=== PATIENT | female | born 1945 | race Caucasian/White ===

== ENCOUNTER 2020-01-29 12:21 | Outpatient (CLI) | payer MEDICARE, SELFPAY ==
--- NOTE | ~2020-01-29 | MM_ITS ---
EXAMINATION: MM screening [facility] BI w brett HISTORY: Screening mammogram TECHNIQUE: Craniocaudal and mediolateral oblique 3-D tomosynthesis images were obtained and synthetic 2-D images were generated. CAD analysis was submitted and interpreted. COMPARISON: 01/27/2019, 08/19/2018, 12/06/2017, BREAST PARENCHYMAL COMPOSITION: The breasts are heterogeneously dense, which may obscure small masses . FINDINGS: There is no evidence of suspicious mass, calcification, or architectural distortion to sugg est malignancy in either breast. There has been no suspicious interval change. IMPRESSION: 1. No mammographic evidence of malignancy. 2. Recommend routine screening mammography in one year. BI-RADS Category 1: Negative Reviewed, dictated and finalized at location A.
== END 2020-01-29 12:22 | disposition home or self-care (01) ==
PROVIDERS: PCP Internal Medicine; Visit Provider Internal Medicine Hematology & Oncology
DX: Z12.31 Encounter for screening mammogram for malignant neoplasm of breast (principal)
CPT/HCPCS: 77063; 77067

== ENCOUNTER 2020-02-19 09:53 | Outpatient (CLI) | payer MEDICARE, SELFPAY ==
--- NOTE | ~2020-02-19 | XR_ITS ---
EXAMINATION: XR knee RT min 4V DATE: 02/19/2020 10:22 INDICATION: Right knee pain. TECHNIQUE: 4 views of right knee were obtained. COMPARISON: None. FINDINGS: Bone alignment is normal. No fracture. There is mild osteoarthritis of medial and patellofe moral compartments. No knee joint effusion. IMPRESSION: 1. Mild right knee osteoarthritis. Reviewed, dictated and finalized at location A. ET ANALYST
[2020-02-19 10:08] LABS: Basophils Absolute Auto 0.03 K/mm3 (0.00-0.10); Basophils Percent Auto 0.5 % (0.0-1.0); Eosinophils Absolute Auto 0.13 K/mm3 (0.02-0.50); Eosinophils Percent Auto 2.1 % (1.0-6.0); Hematocrit 41.5 % (35.0-42.0); Hemoglobin 13.2 g/dL (11.7-13.8); Immature Granulocyte Absolute 0.01 K/mm3 (0.00-0.00); Immature Granulocyte Percent A 0.2 % (0.0-0.0); Lymphocytes Absolute Auto 1.35 K/mm3 (1.10-4.50); Lymphocytes Percent Auto 21.9 % (18.0-42.0); Mean Corpuscular HGB Conc 31.8 g/dL (32.0-36.0); Mean Corpuscular Hemoglobin 29.2 pg (27.0-31.0); Mean Corpuscular Volume 91.8 fL (78.0-102.0); Mean Platelet Volume 10.7 fl (9.2-11.8); Monocytes Absolute Auto 0.41 K/mm3 (0.10-0.90); Monocytes Percent Auto 6.7 % (2.0-11.0); Neutrophils Absolute Auto 4.2 K/mm3 (1.7-7.2); Neutrophils Percent Auto 68.6 % (50.0-70.0); Platelet Count Result 179 K/mm3 (150-420); Red Blood Count 4.52 M/mm3 (4.20-5.40); Red Cell Distribution Width 12.4 % (11.6-14.4); White Blood Count 6.2 K/mm3 (4.8-10.8)
[2020-02-19 10:12] LABS: Add Urine Microscopic? NO; Appearance Urine Clear (Clear); Bilirubin Urine Negative (Negative); Blood Urine Negative (Negative); Color Urine Yellow (Yellow); Glucose Urine UA Negative (Negative); Ketones Urine Negative (Negative); Leukocyte Esterase Ur Negative (Negative); Nitrate Urine Negative (Negative); Protein Urine Negative (Negative); Specific Grav Ur 1.025 (1.010-1.020); Urobilinogen Urine 0.2 mg/dL (0.2-1.0)
[2020-02-19 11:19] LABS: Alanine Aminotransferase 31 U/L (14-59); Albumin Level 4.1 g/dL (3.4-5.0); Alkaline Phosphatase 84 U/L (46-116); Anion Gap 9 mmol/L (8-16); Aspartate Amino Transferase 14 U/L (15-37); Bilirubin,Total 0.7 mg/dL (0.00-1.00); Blood Urea Nitrogen 15 mg/dL (7-18); Calcium 9.1 mg/dL (8.5-10.1); Carbon Dioxide 29 mmol/L (21-32); Chloride 105 mmol/L (98-108); Cholesterol 228 mg/dL (0-200); Estimated Glomerular Filt Rate > 60; Free T3 2.77 pg/mL (2.18-3.98); Glucose 96 mg/dL (70-99); HDL Direct 81 mg/dL (40-60); LDL Cholesterol Calculated 128 mg/dL (<130); Osmolality Calculated 296 mOsm/kg (285-295); Potassium 4.3 mmol/L (3.5-5.1); Sodium 143 mmol/L (136-145); Thyroid Stimulating Hormone 4.78 uIU/mL (0.36-3.74); Total Protein 7.8 g/dL (6.4-8.2); Triglycerides 96 mg/dL (0-150)
[2020-02-25 12:24] LABS: Vitamin D 25 Hydroxy 41 ng/mL (30-100)
== END 2020-02-19 09:54 | disposition home or self-care (01) ==
PROVIDERS: PCP Internal Medicine; Visit Provider Internal Medicine
DX: M25.561 Pain in right knee (principal); E78.2 Mixed hyperlipidemia; E03.4 Atrophy of thyroid (acquired); E53.8 Deficiency of other specified B group vitamins; R53.82 Chronic fatigue, unspecified; M81.0 Age-related osteoporosis without current pathological fracture; C50.412 Malignant neoplasm of upper-outer quadrant of left female breast
CPT/HCPCS: 36415; 73564; 80053; 80061; 81003; 82306; 84439; 84443; 84481; 85025

== ENCOUNTER 2020-08-17 15:36 | Outpatient (CLI) | payer MEDICARE, SELFPAY | END 2020-08-17 15:37 | disposition home or self-care (01) | LOC: CHSLAB 15:41 | PROVIDERS: PCP Internal Medicine; Visit Provider Specialist | DX: C44.722 Squamous cell carcinoma of skin of right lower limb, including hip (principal) | CPT/HCPCS: 88305 ==

== ENCOUNTER 2020-12-01 12:54 | Outpatient (CLI) | payer MEDICARE, SELFPAY ==
--- NOTE | ~2020-12-01 | XR_ITS ---
MODIFIED ESOPHAGRAM HISTORY: Pneumonia TECHNIQUE: Modified barium esophagram was performed by speech pathologist under radiologist fluorosco pic guidance. This was recorded on tape. The exam was reviewed on 12/01/2020 16:00 CDT. The DAP for this procedure was 0.7 Gycm2. Fluoroscopy time is 1.6 minutes. FINDINGS: Lateral projection of the cervical spine demonstrates normal alignment. Oral, pharyngeal and cervical/esophageal stages of swallowing are within normal limits. No evidence for aspiration or penetration.. IMPRESSION: 1: Normal swallowing function without penetration or aspiration. 2: Please refer to speech pathologist report for additional detail. Reviewed, dictated and finalized at location A.
--- NOTE | 2020-12-01 14:52 | STOPEVAL ---
MODIFIED BARIUM SWALLOW STUDY Thank you for referring Meghna Cai to [facility].? This was an evaluation only. Please review, sign, date and return this plan of care NAKITA. Referring Physician Date Admitting Provider: Attending Provider: Arjun Espino MD Referring Provider: JOLEEN Outpatient Evaluation Start: 12/01/20 14:32 Freq: Status: Active Protocol: Document 12/01/20 13:00 MJB (Rec: 12/01/20 14:51 MJB [id number]) Therapy Assessment Status Assessment Status Assessment Status Evaluation Outpatient Past Medical History Past Medical History Source of Past Medical History Patient Neurological History Hx Neurological Disorders No Significant History Cardiovascular History Hx Cardiac Disorders No Significant History Respiratory History Hx Respiratory Disorders No Significant History Gastrointestinal History Hx Gastrointestinal Disorders No Significant History Genitourinary History Hx Genitourinary Disorders No Significant History Musculoskeletal History Hx Musculoskeletal Disorders No Significant History Hematological History Hx Hematological Disorders No Significant History Endocrine History Hx Endocrine Disorders No Significant History HEENT History Hx HEENT Disorders No Significant History Integumentary History Hx Skin Disorders No Significant History Reproductive History Hx Reproductive Disorders No Significant History Psychosocial History Hx Psychiatric Disorders No Significant History Pain History History of Any Previous or Ongoing No Significant History Instance of Pain Anesthesia History Hx Anesthesia Reactions No Significant History Other History Hx Cancer Yes: breast cancer 4 years ago Pain Assessment Timing of Pain Assessment Timing of Pain Assessment Assessment Self Report Self Report Pain Level 0 Pain Score Pain Score 0: Self Report Modified Barium Swallow Evaluation Recent Swallowing History Reports Dysphagia Yes History of Dysphagia Yes Duration of Dysphagia choking episode 1x per week Other Factors Impacting Dysphagia None History of Pneumonia No Reported Difficult Consistencies Unable to Identify Intake Method Prior to Swallow Oral Evaluation Diet Prior to Swallow Evaluation Regular, Level 7 Liquid Consistency Prior to Swallow Thin (0) Evaluation Consistency Solid Consistency 5 mL Other Amount Liam cracker Method of Presentation Spoon Oral Preparatory Symptoms Within Functional Limits Oral Phase Symptoms Piecemeal Deglutition,Slow Oral Transit Pharyngeal Phase Symptoms Delayed Swallow Sever
== END 2020-12-01 12:55 | disposition home or self-care (01) ==
LOC: CHSIMG 12:56
PROVIDERS: PCP Internal Medicine; Visit Provider Internal Medicine
DX: R13.12 Dysphagia, oropharyngeal phase (principal)
CPT/HCPCS: 92611

== ENCOUNTER 2020-12-21 15:31 | Outpatient (CLI) | payer MEDICARE, SELFPAY | END 2020-12-21 15:32 | disposition home or self-care (01) | LOC: CHSLAB 15:34 | PROVIDERS: PCP Internal Medicine; Visit Provider Specialist | DX: C44.722 Squamous cell carcinoma of skin of right lower limb, including hip (principal) | CPT/HCPCS: 88305 ==

== ENCOUNTER 2021-01-05 11:45 | Outpatient (CLI) | payer MEDICARE, SELFPAY ==
[2021-01-05 13:23] LABS: SARS-CoV-2 RNA PCR Negative (Negative)
== END 2021-01-05 11:46 | disposition home or self-care (01) ==
LOC: CHSLAB 11:47
PROVIDERS: PCP Internal Medicine; Visit Provider Internal Medicine
DX: J06.9 Acute upper respiratory infection, unspecified (principal); Z20.822 Contact with and (suspected) exposure to COVID-19
CPT/HCPCS: C9803; U0003; U0005

== ENCOUNTER 2021-02-28 13:05 | Outpatient (CLI) | payer MEDICARE, SELFPAY ==
--- NOTE | ~2021-02-28 | DEXA_ITS ---
Bone Density Report Name: Meghna Cai Age: 75 Sex: Female Ethnicity: White Date of : 1945 Indication: osteopenia; height loss; cancer; Referring Provider: Arjun Espino Study: Bone densitometry was performed. Exam Date: February 28, 2021 Accession number: [id number] Bone Density: Region BMD T-score Z-score Classification AP Spine(L1-L4) 0.777 -2.5 0.1 Osteoporosis Femoral Neck (Left) 0.585 -2.4 -0.2 Osteopenia Total Hip (Left) 0.705 -1.9 0.0 Osteopenia Femoral Neck (Right) 0.582 -2.4 -0.2 Osteopenia Total Hip (Right) 0.774 -1.4 0.6 Osteopenia Femoral Neck Mean 0.584 -2.4 -0.2 Osteopenia Total Hip Mean 0.739 -1.7 0.3 Osteopenia World Health Organization criteria for BMD impression classify patients as: Normal (T-score at or above -1.0), Osteopenia (T-score between -1.0 and -2.5), or Osteoporosis (T-score at or below -2.5). 10-year Fracture Risk: FRAX not reported because: Some T-score for Spine Total or Hip Total or Femoral Neck at or below -2.5 Previous Exams: Region Exam Age BMD T-score BMD Change BMD Change Date g/cm2 vs Baseline vs Previous AP Spine (L1-L4) 02/28/2021 75 0.777 -2.5 -0.090 (-10.4% -0.087 (-10.1% 01/27/2019 73 0.864 -1.7 -0.003 (-0.4%) -0.003 (-0.4%) 11/23/2016 71 0.868 -1.6 Total Hip(Left) 02/28/2021 75 0.705 -1.9 -0.043 (-5.7%) -0.071 (-9.2%) 01/27/2019 73 0.776 -1.4 0.028 (3.8%)* 0.028 (3.8%)* 11/23/2016 71 0.747 -1.6 Total Hip(Right) 02/28/2021 75 0.774 -1.4 0.067 (9.4%)# 0.067 (9.4%)# 01/27/2019 73 0.707 -1.9 *Denotes significance at 95% confidence level, LSC for AP Spine = 0.022 g/cm2, LSC for Total Hip = 0.027 g/cm2 # Denotes dissimilar scan types or analysis methods Clinical Information Provided by Patient: Has used the following medications: Vitamin D, Calcium Has the following medical conditions: Cancer Patient maximum height was 64 Drinks caffeinated beverages Onset of menses at age 12 Number of children 4 Impression: The patient has osteoporosis, based on the Total Spine T-score. No significant bone loss was observed. Discussion: INCREASED RISK OF FRACTURE. BONE DENSITY IS UNDESIRABLY LOW AT ONE OR MORE SKELETAL SITES, CONSISTENT WITH POSTMENOPAUSAL OSTEOPOROSIS. This patient's lowest T-score meets the World Health Organization's (WHO) criteria for osteoporosis at one or more sites (T-score -2.5 or below). In untreated patie
--- NOTE | ~2021-02-28 | MM_ITS ---
EXAMINATION: MM screening [facility] BI w brett HISTORY: Screening mammogram TECHNIQUE: Craniocaudal and mediolateral oblique 3-D tomosynthesis images were obtained and synthetic 2-D images were generated. CAD analysis was submitted and interpreted. COMPARISON: 01/29/2020, 01/27/2019 bilateral screening mammogram examinations BREAST PARENCHYMAL COMPOSITION: The breasts are heterogeneously dense, which may obscure small masses . FINDINGS: There is no evidence of suspicious mass, calcification, or architectural distortion to sugg est malignancy in either breast. There has been no suspicious interval change. IMPRESSION: 1. No mammographic evidence of malignancy. 2. Recommend routine screening mammography in one year. BI-RADS Category 1: Negative Reviewed, dictated and finalized at location A. A SENIOR RECRUITER
[2021-02-28 13:21] LABS: Basophils Absolute Auto 0.05 K/mm3 (0.00-0.10); Basophils Percent Auto 0.8 % (0.0-1.0); Eosinophils Absolute Auto 0.18 K/mm3 (0.02-0.50); Eosinophils Percent Auto 2.7 % (1.0-6.0); Hematocrit 40.4 % (35.0-42.0); Hemoglobin 12.9 g/dL (11.7-13.8); Immature Granulocyte Absolute 0.02 K/mm3 (0.00-0.00); Immature Granulocyte Percent A 0.3 % (0.0-0.0); Lymphocytes Absolute Auto 1.49 K/mm3 (1.10-4.50); Lymphocytes Percent Auto 22.5 % (18.0-42.0); Mean Corpuscular HGB Conc 31.9 g/dL (32.0-36.0); Mean Corpuscular Hemoglobin 29.4 pg (27.0-31.0); Mean Platelet Volume 10.9 fl (9.2-11.8); Monocytes Absolute Auto 0.51 K/mm3 (0.10-0.90); Monocytes Percent Auto 7.7 % (2.0-11.0); Neutrophils Absolute Auto 4.4 K/mm3 (1.7-7.2); Platelet Count Result 168 K/mm3 (150-420); Red Blood Count 4.39 M/mm3 (4.20-5.40); Red Cell Distribution Width 12.5 % (11.6-14.4); White Blood Count 6.6 K/mm3 (4.8-10.8)
[2021-02-28 13:23] LABS: Add Urine Microscopic? YES; Appearance Urine Clear (Clear); Bilirubin Urine Negative (Negative); Blood Urine Negative (Negative); Color Urine Light Yellow (Yellow); Glucose Urine UA Negative (Negative); Ketones Urine Trace (Negative); Leukocyte Esterase Ur Negative LEU/UL (Negative); Nitrate Urine Negative (Negative); Protein Urine Negative (Negative); Urobilinogen Urine 0.2 mg/dL (0.2-1.0)
[2021-02-28 13:30] LABS: RBC Urine None seen /hpf (0-2); Squamous Epithelial Cell Urine Rare /hpf (Few); WBC Urine None seen /hpf (0-3)
[2021-02-28 13:31] LABS: Bacteria Urine Trace /hpf
[2021-02-28 15:53] LABS: Alanine Aminotransferase 25 U/L (14-59); Albumin Level 4.2 g/dL (3.4-5.0); Alkaline Phosphatase 74 U/L (46-116); Anion Gap 12 mmol/L (8-16); Aspartate Amino Transferase 17 U/L (15-37); Blood Urea Nitrogen 17 mg/dL (7-18); Calcium 8.8 mg/dL (8.5-10.1); Carbon Dioxide 29 mmol/L (21-32); Chloride 101 mmol/L (98-108); Estimated Glomerular Filt Rate > 60; Free T3 2.43 pg/mL (2.18-3.98); Free T4 Free Thyroxine 0.92 ng/dL (0.76-1.46); Glucose 89 mg/dL (70-99); Osmolality Calculated 294 mOsm/kg (285-295); Potassium 3.9 mmol/L (3.5-5.1); Sodium 142 mmol/L (136-145); Thyroid Stimulating Hormone 3.46 uIU/mL (0.36-3.74); Total Protein 7.3 g/dL (6.4-8.2)
[2021-02-28 16:02] LABS: Vitamin B12 > 2000 pg/mL (193-986)
[2021-03-05 12:29] LABS: Vitamin D 25 Hydroxy 79 ng/mL (30-100)
== END 2021-02-28 13:06 | disposition home or self-care (01) ==
LOC: CHSIMG 13:08
PROVIDERS: PCP Internal Medicine; Visit Provider Internal Medicine
DX: M81.0 Age-related osteoporosis without current pathological fracture (principal); Z12.31 Encounter for screening mammogram for malignant neoplasm of breast; R53.82 Chronic fatigue, unspecified; E03.4 Atrophy of thyroid (acquired); E53.8 Deficiency of other specified B group vitamins
CPT/HCPCS: 36415; 77063; 77067; 77080; 80053; 81001; 82306; 82607; 84439; 84443; 84481; 85025

== ENCOUNTER 2021-07-05 09:10 | Outpatient (CLI) | payer MEDICARE, SELFPAY | END 2021-07-05 09:11 | disposition home or self-care (01) | LOC: CHSOUTPT 09:18 | PROVIDERS: PCP Internal Medicine; Visit Provider Specialist | DX: C44.729 Squamous cell carcinoma of skin of left lower limb, including hip (principal) | CPT/HCPCS: 88305 ==

== ENCOUNTER 2021-08-17 11:35 | Emergency (ER) | payer MEDICARE, SELFPAY ==
[2021-08-17] VITALS (20 sets, daily range): BP systolic 119–156; BP diastolic 71–95; PULSE 79; RESP 20; TEMP 36.6–36.7; O2SAT 95–100
--- NOTE | ~2021-08-17 | CT_ITS ---
EXAMINATION: CTA chest PE protocol DATE: 08/17/2021 13:36 INDICATION: Chest tightness. Shortness of breath. COVID-19 positive recently. TECHNIQUE: Computed tomography angiography (CTA) of the chest was performed with 100 mL Omnipaque-350 intravenous contrast timed to evaluate the pulmonary arteries. Coronal maximum intensity projection 3D-reconstructions were created by the technologist. Automated exposure control and iterative reconst ruction technique were employed. The dose-length product was 188.58 mGy-cm. COMPARISON: None. FINDINGS: There is mild scarring at the lung apices. There is mild atelectasis bilaterally. No pleura l effusion. Cardiomegaly is noted. No pericardial effusion. There is no pulmonary embolus. There is a 17 mm cyst in the liver. Calcifications in the spleen are consistent with old granulomatous disease. There is moderate thoracic spondylosis. IMPRESSION: 1. No pulmonary embolus. Reviewed, dictated and finalized at location B. IMPRESSION: 1. No pulmonary embolus.
--- NOTE | ~2021-08-17 | XR_ITS ---
EXAMINATION: XR chest 1V portable DATE: 08/17/2021 12:12 INDICATION: COVID positive. Cough and congestion. TECHNIQUE: frontal view of the chest was obtained. COMPARISON: Chest radiograph dated 02/19/2019 FINDINGS: Unchanged mild streaky atelectasis/scarring at the left lower lung zone. No new airspace opacities, p ulmonary edema, pleural effusion or pneumothorax. The cardiomediastinal silhouette is normal. IMPRESSION: 1. Unchanged mild streaky atelectasis/scarring at the left lower lung zone. No acute cardiopulmonary disease. Reviewed, dictated and finalized at location A.
--- NOTE | 2021-08-17 11:42 | ED.GENADULT ---
HPI - General Adult General Chief complaint: Shortness of Breath/Dyspnea Stated complaint: COVID Time Seen by Provider: 08/17/21 11:42 Source: patient History of Present Illness HPI narrative: 76-year-old female with a history of breast cancer, status post hysterectomy, status post appendectomy tested positive for COVID on 08/09/2021. She is COVID vaccinated. She presents to the ER with -- Chest congestion. No shortness of breath. No Chest pain. -- low-grade which has resolved -- she had 2 episodes of since morning Onset (ago): day(s) ( started 10 ago) Associated symptoms: denies other symptoms Treatments prior to arrival: other ( Mucinex) Related Data Home Medications Medication Instructions Recorded Confirmed anastrozole 1 mg PO DAILY 02/19/19 08/17/21 Allergies Allergy/AdvReac Type Severity Reaction Status Date / Time No Known Allergies Allergy Unverified 08/17/21 12:09 Review of Systems Review of Systems: All systems reviewed & are unremarkable except as noted in HPI and below Constitutional: Constitutional: Reports as per HPI and Reports no additional constitutional complaints Comments: low-grade fever Eyes: Eyes: Reports as per HPI and Reports no additional eye complaints ENT: Reports system reviewed and no additional complaints, except as documented and Reports as per HPI Cardiovascular: Cardiovascular: Reports as per HPI and Reports no additional cardiovascular complaints Respiratory: Respiratory: Reports as per HPI and Reports no additional respiratory complaints Comments: chest congestion. No cough or sputum production. No shortness of breath. Gastrointestinal: Gastrointestinal: Reports as per HPI and Reports no additional gastrointestinal complaints Genitourinary: Genitourinary: Reports no additional female genitourinary complaints and Reports as per HPI Musculoskeletal: Musculoskeletal: Reports no additional musculoskeletal complaints and Reports as per HPI Integumentary/Breasts: Skin/Breast: Reports system reviewed and no additional complaints, except as docu and Reports as per HPI Neurologic: Reports system reviewed and no additional complaints, except as documented and Reports as per HPI Psychiatric: Psychiatric: Reports no additional psychiatric complaints and Reports as per HPI Endocrine: Endocrine: Reports no additional endocrine complaints and Reports as per HPI Hematologic/Lymphatic: Hematologic/Lymphatic: Reports no additional hematologic/lymphatic complaints and Reports as per HPI Allergic/Immunologic: Allergic/Immunologic: Reports no additional allergic/immunologic complaints and Reports as per HPI Exam Const: General: no acute distress and alert Orientation/consciousness: patient oriented x3 HENMT: Head: normal to inspection Eyes: Conjunctivae: conjunctivae normal Pupils: Equal, round and reactive pupils present EOM: EOMs intact bilaterally Neck: Neck: normal visual inspection and no lymphadenopathy Chest: Chest palpation & inspection: normal inspection of the chest and abnormal inspection of the chest Resp: Effort & Inspection: normal respiratory effort Auscultation: clear to auscultation bilaterally Cardio: Rate: regular rate Rhythm: regular rhythm GI: GI Palp: Yes Soft to palpation : General: Yes no CVA tenderness Back/Spine/Pelvis: Back: no CVA tenderness Skin: General skin exam: normal color Rashes: no rashes Neuro: General: patient oriented x3, moves all extremities, no meningeal signs, no focal motor deficits and CN's II-XI intact bilaterally Extrem: General: normal to inspection and no pedal edema Psych: Mental Status: mental status grossly normal Affect: normal affect Course Course Emergency Course: patient has remained hemodynamically stable during her entire ER stay. Medical Decision Making MDM Narrative Medical decision making narrative: Chest congestion- rule out COVID pneumonia Differential Diagnosis Differential Diagn
--- NOTE | 2021-08-17 11:57 | ECG_ITS ---
Measurements Intervals [place] Rate: 66 P: 56 HI: 164 QRS: -22 QRSD: 81 T: 27 QT: 402 QTc: 421 Interpretive Statements SINUS RHYTHM DELAYED PRECORDIAL R/S TRANSITION BASELINE ARTIFACT- I, II, III, AVR, AVL, AVF BORDERLINE ECG Electronically Signed On 08-17-2021 13:08:31 CDT by Duglas Penaloza D.O.
[2021-08-17 12:20] LABS: Basophils Absolute Auto 0.02 K/mm3 (0.00-0.10); Basophils Percent Auto 0.5 % (0.0-1.0); Eosinophils Absolute Auto 0.11 K/mm3 (0.02-0.50); Eosinophils Percent Auto 2.5 % (1.0-6.0); Hemoglobin 13.1 g/dL (11.7-13.8); Immature Granulocyte Absolute 0.01 K/mm3 (0.00-0.00); Immature Granulocyte Percent A 0.2 % (0.0-0.0); Lymphocytes Percent Auto 31.6 % (18.0-42.0); Mean Corpuscular HGB Conc 32.8 g/dL (32.0-36.0); Mean Corpuscular Hemoglobin 29.6 pg (27.0-31.0); Mean Corpuscular Volume 90.3 fL (78.0-102.0); Mean Platelet Volume 11.1 fl (9.2-11.8); Monocytes Absolute Auto 0.34 K/mm3 (0.10-0.90); Monocytes Percent Auto 7.7 % (2.0-11.0); Neutrophils Absolute Auto 2.6 K/mm3 (1.7-7.2); Neutrophils Percent Auto 57.5 % (50.0-70.0); Platelet Count Result 163 K/mm3 (150-420); Red Blood Count 4.43 M/mm3 (4.20-5.40); Red Cell Distribution Width 11.9 % (11.6-14.4); White Blood Count 4.4 K/mm3 (4.8-10.8)
[2021-08-17 12:34] LABS: Partial Thromboplastin Time 26.2 SEC (23.90-30.70); Prothrombin Time 10.6 Seconds (9.50-12.10)
[2021-08-17 12:36] LABS: D Dimer 1.56 mg/L (0.19-0.50)
[2021-08-17 12:40] LABS: Lactic Acid Reflex 0.5 mmol/L (0.4-2.0)
[2021-08-17 12:44] LABS: Alanine Aminotransferase 22 U/L (14-59); Albumin Level 3.6 g/dL (3.4-5.0); Alkaline Phosphatase 97 U/L (46-116); Anion Gap 9 mmol/L (8-16); Aspartate Amino Transferase 14 U/L (15-37); Bilirubin,Total 0.5 mg/dL (0.00-1.00); Blood Urea Nitrogen 14 mg/dL (7-18); Calcium 8.8 mg/dL (8.5-10.1); Carbon Dioxide 26 mmol/L (21-32); Chloride 101 mmol/L (98-108); Estimated CRCL calculation 43 ml/min; Estimated Glomerular Filt Rate > 60; Glucose 104 mg/dL (70-99); NT Pro B Type Natriuretic Pept 182 pg/mL (0-450); Osmolality Calculated 282 mOsm/kg (285-295); Potassium 3.9 mmol/L (3.5-5.1); Sodium 136 mmol/L (136-145); Total Protein 7.3 g/dL (6.4-8.2)
[2021-08-17 12:45] LABS: Troponin I 6.1 ng/L (0.00-60.4)
[2021-08-17] MEDS: LACTATED RINGERS 1,000 ML 999 ML IV CONT (13:26)
== END 2021-08-17 14:35 | disposition home or self-care (01) ==
PROVIDERS: Emergency Provider Internal Medicine Critical Care Medicine; PCP Internal Medicine
DX: U07.1 COVID-19 (principal); R09.89 Other specified symptoms and signs involving the circulatory and respiratory systems; Z85.3 Personal history of malignant neoplasm of breast
CPT/HCPCS: 36415; 71045; 71275; 80053; 83605; 83880; 84484; 85025; 85380; 85610; 85730; 93005; 96360; 99284; J7120; Q9967

== ENCOUNTER 2022-03-02 11:33 | Outpatient (CLI) | payer MEDICARE, SELFPAY ==
--- NOTE | ~2022-03-02 | MM_ITS ---
EXAMINATION: MM screening [facility] BI w brett HISTORY: Screening mammogram TECHNIQUE: Craniocaudal and mediolateral oblique 3-D tomosynthesis images were obtained and synthetic 2-D images were generated. CAD analysis was submitted and interpreted. COMPARISON: 02/28/2021, 01/29/2020, 01/19/2019 BREAST PARENCHYMAL COMPOSITION: The breasts are heterogeneously dense, which may obscure small masses . FINDINGS: RIGHT BREAST: There are grouped calcifications in the middle third of the lower-outer breast 7 cm fro m the nipple. LEFT BREAST: No suspicious mass, calcification, or architectural distortion are identified to suggest malignancy. There has been no suspicious interval change. IMPRESSION: 1. Right breast calcifications. 2. Magnification views are recommended. BI-RADS Category 0: Incomplete: Needs additional imaging evaluation. Reviewed, dictated and finalized at location A. HYSICS PROFESSOR
== END 2022-03-02 11:34 | disposition home or self-care (01) ==
LOC: CHSIMG 11:35
PROVIDERS: PCP Internal Medicine; Visit Provider Internal Medicine Hematology & Oncology
DX: Z12.31 Encounter for screening mammogram for malignant neoplasm of breast (principal)
CPT/HCPCS: 77063; 77067

== ENCOUNTER 2022-03-09 08:51 | Outpatient (CLI) | payer MEDICARE, SELFPAY ==
--- NOTE | ~2022-03-09 | MM_ITS ---
EXAMINATION: MM diagnostic lexus RT w brett HISTORY: Right breast calcifications on screening mammogram TECHNIQUE: Magnification views of the right breast were performed. CAD analysis was submitted and int erpreted. COMPARISON: 03/02/2022, 02/28/2021, 01/29/2020 FINDINGS: There are grouped coarse heterogeneous calcifications in the posterior third of the outer b reast at the 8:00 location 7 cm from the nipple which have increased in number since comparison exami nations. No associated mass is identified. IMPRESSION: 1. Indeterminate right breast calcifications. 2. Stereotactic biopsy is recommended. BI-RADS category 4, suspicious findings. Reviewed, dictated and finalized at location A. SPREADER OPERATOR
== END 2022-03-09 08:52 | disposition home or self-care (01) ==
PROVIDERS: PCP Internal Medicine; Visit Provider Internal Medicine
DX: R92.8 Other abnormal and inconclusive findings on diagnostic imaging of breast (principal)
CPT/HCPCS: 77061; 77065; G0279

== ENCOUNTER 2023-01-23 14:37 | Emergency (ER) | payer MEDICARE, SELFPAY ==
--- NOTE | ~2023-01-23 | CT_ITS ---
EXAMINATION: CT brain wo con DATE: 01/23/2023 15:01 INDICATION: Status post fall from ladder. TECHNIQUE: Computed tomography (CT) of the head was performed without intravenous contrast. The dose- length product was 605.33 mGy-cm. COMPARISON: CT dated 02/19/2019 FINDINGS: There is a right posterior parietal scalp hematoma. Round brain parenchymal volume loss, co nsistent menstrual with age. There is intracranial atherosclerosis. No acute infarction, hemorrhage, mass or mass effect. Paranasal sinuses and mastoids are pneumatized. No depressed skull fractures. Th ere are scattered mild periventricular and subcortical white matter changes, most likely related to s mall vessel ischemic disease (microangiopathy). IMPRESSION: 1. No acute intracranial abnormality. Reviewed, dictated and finalized at location L.
[2023-01-23 14:37] VITALS: BP 156/80; PULSE 94; RESP 20; TEMP 37.4; O2SAT 97
--- NOTE | 2023-01-23 14:45 | ED.FALL ---
HPI - Fall General Chief Complaint: Head Injury Stated Complaint: fall; head injury Time Seen by Provider: 01/23/23 14:42 Source: patient and RN notes reviewed Mode of arrival: ambulatory Limitations: no limitations History of Present Illness HPI Narrative: Patient states that she was standing on a 4 ft ladder on the 2nd or 3rd rung when she of lost her balance and fell backwards hitting her head. She also feels like she strained a muscle in her right lower leg just below her knee. She denies any pain anywhere else. MD complaint: fall Onset (ago): minute(s) (20) Fall from: from height (distance) (2-3 feet) Fall witnessed: no Place fall occurred: home Loss of consciousness: none Prolonged down time: no Symptoms prior to fall: none Context: tripped/slipped Location of injury: head Location of injury - extremities: Right: lower leg Severity: moderate Quality: dull, aching and throbbing Associated symptoms (after fall): headache Related Data Home Medications Medication Instructions Recorded Confirmed exemestane 25 mg tablet 25 mg PO DAILY 01/23/23 01/23/23 memantine 10 mg tablet 10 mg PO HS 01/23/23 01/23/23 verapamil 240 mg tablet,extended 240 mg PO DAILY 01/23/23 01/23/23 release Allergies Allergy/AdvReac Type Severity Reaction Status Date / Time No Known Allergies Allergy Unverified 01/23/23 14:45 Review of Systems Review of Systems: All systems reviewed & are unremarkable except as noted in HPI and below Exam Const: General: healthy appearing, no acute distress and alert Nutritional Appearance: well nourished Orientation/consciousness: patient oriented x3 Limitations: no limitations HENMT: Head: contusion right occipital 4 cm Ears: external ears normal Face/Nose/Sinus: Normal external nose present Face and sinus: normal facial exam Mouth: Yes Normal oral and palatal mucosa present and Yes moist mucous membranes Eyes: Conjunctivae: conjunctivae normal Pupils: Equal, round and reactive pupils present EOM: EOMs intact bilaterally Neck: Neck: normal visual inspection Resp: Effort & Inspection: normal respiratory effort Auscultation: clear to auscultation bilaterally Cardio: Rate: regular rate Rhythm: regular rhythm GI: GI Palp: Yes Soft to palpation and No Tenderness to palpation present (GI) Auscultation: normal bowel sounds Back/Spine/Pelvis: Cervical Spine: cervical ROM normal Thoracic/Lumbar Spine: thoraco-lumbar ROM normal Skin: General skin exam: normal color Rashes: no rashes Neuro: General: patient oriented x3, moves all extremities, no focal motor deficits and CN's II-XI intact bilaterally Speech: normal speech Gait exam (Neuro): Normal gait present Extrem: General: no clubbing, cyanosis or edema Right lower extremity: full ROM and lower leg Details: tenderness ( Proximal lateral soft tissue lower leg); no ecchymosis and no crepitus Psych: Mental Status: mental status grossly normal Affect: normal affect Attitude: cooperative Course Vital Signs Vital signs: Vital Signs Temperature 37.4 C 01/23/23 14:37 Pulse Rate 94 01/23/23 14:37 Respiratory Rate 20 01/23/23 14:37 Blood Pressure 156/80 H 01/23/23 14:37 Pulse Oximetry 97 01/23/23 14:37 Oxygen Delivery Room Air 01/23/23 14:37 Temperature 37.4 C 01/23/23 14:37 Pulse Rate 94 01/23/23 14:37 Respiratory Rate 20 01/23/23 14:37 Blood Pressure 156/80 H 01/23/23 14:37 Pulse Oximetry 97 01/23/23 14:37 Oxygen Delivery Room Air 01/23/23 14:37 MDM - Fall Differential Diagnosis Differential diagnosis: Likely concussion with loss of consciousness, concussion without loss of consciousness and other ( skull fracture, intracranial bleed) Discharge Plan Discharge Clinical Impression: Contusion of scalp Qualifiers: Encounter type: initial encounter Qualified Code(s): S00.03XA - Contusion of scalp, initial encounter Patient Disposition: Home, Self-Care Condition: Stable Inst
[2023-01-23 15:13] VITALS: BP 146/86; PULSE 85; RESP 18; O2SAT 96
[2023-01-23] MEDS: IBUPROFEN 600 MG TABLET PO (15:25)
[2023-01-23 15:30] VITALS: BP 146/86; PULSE 85; RESP 18; TEMP 37.3; O2SAT 99
== END 2023-01-23 15:30 | disposition home or self-care (01) ==
PROVIDERS: Emergency Provider Emergency Medicine; PCP Internal Medicine
DX: S00.03XA Contusion of scalp, initial encounter (principal); Z79.899 Other long term (current) drug therapy; W11.XXXA Fall on and from ladder, initial encounter; Y92.009 Unspecified place in unspecified non-institutional (private) residence as the place of occurrence of the external cause
CPT/HCPCS: 70450; 99284; A9270

== ENCOUNTER 2023-03-08 08:41 | Outpatient (CLI) | payer MEDICARE, SELFPAY ==
--- NOTE | ~2023-03-08 | MM_ITS ---
EXAMINATION: MM diagnostic lexus BI w brett HISTORY: Patient status post interval lumpectomy for right breast cancer, history of left breast canc er TECHNIQUE: Craniocaudal, mediolateral, and mediolateral oblique 3-D tomosynthesis images of the breas ts were performed and synthetic 2-D images were generated. CAD analysis was submitted and interpreted . COMPARISON: 03/09/2022, 03/02/2022, 02/28/2021, 01/29/2020 BREAST PARENCHYMAL COMPOSITION: The breasts are heterogeneously dense, which may obscure small masses . FINDINGS: There are changes of interval lumpectomy in the middle third of the lower-outer quadrant of the right breast. No suspicious mass, calcification, or architectural distortion are identified in e ither breast to suggest malignancy. There has been no suspicious interval change. IMPRESSION: 1. No mammographic evidence of malignancy. 2. Recommend routine screening mammography in one year. BI-RADS Category 2: Benign finding(s). Reviewed, dictated and finalized at location A. EMENT INTERVIEWER
== END 2023-03-08 08:42 | disposition home or self-care (01) ==
LOC: CHSIMG 08:44
PROVIDERS: PCP Internal Medicine; Visit Provider Internal Medicine Hematology & Oncology
DX: C50.011 Malignant neoplasm of nipple and areola, right female breast (principal)
CPT/HCPCS: 77062; 77066; G0279

== ENCOUNTER 2023-04-17 15:11 | Outpatient (CLI) | payer MEDICARE, SELFPAY | END 2023-04-17 15:12 | disposition home or self-care (01) | PROVIDERS: PCP Internal Medicine; Visit Provider Specialist | DX: C44.529 Squamous cell carcinoma of skin of other part of trunk (principal) | CPT/HCPCS: 88305 ==

== ENCOUNTER 2023-05-25 11:45 | Outpatient (CLI) | payer MEDICARE, SELFPAY ==
--- NOTE | ~2023-05-25 | US_ITS ---
EXAMINATION: US venous doppler LE RT DATE: 05/25/2023 12:26 INDICATION: Right lower limb swelling TECHNIQUE: Alexis scale images without and with compression and Doppler images of the right lower extre mity veins were obtained. COMPARISON: None FINDINGS: The right common femoral vein, profunda femoral vein, femoral vein, popliteal vein, peronea l trunk, posterior tibial veins, and greater saphenous vein are patent. IMPRESSION: 1. Patent right lower extremity veins. No evidence of deep venous thrombosis. Reviewed, dictated and finalized at location B. HIATRIC TECHNICIAN ASSISTANT
[2023-05-25 12:22] LABS: Basophils Absolute Auto 0.02 K/mm3 (0.00-0.10); Basophils Percent Auto 0.4 % (0.0-1.0); Eosinophils Absolute Auto 0.08 K/mm3 (0.02-0.50); Eosinophils Percent Auto 1.8 % (1.0-6.0); Hematocrit 41.8 % (35.0-42.0); Hemoglobin 13.1 g/dL (11.7-13.8); Immature Granulocyte Absolute 0.01 K/mm3 (0.00-0.00); Immature Granulocyte Percent A 0.2 % (0.0-0.0); Lymphocytes Absolute Auto 1.31 K/mm3 (1.10-4.50); Lymphocytes Percent Auto 29.4 % (18.0-42.0); Mean Corpuscular HGB Conc 31.3 g/dL (32.0-36.0); Mean Corpuscular Hemoglobin 28.5 pg (27.0-31.0); Mean Corpuscular Volume 91.1 fL (78.0-102.0); Mean Platelet Volume 10.9 fl (9.2-11.8); Monocytes Absolute Auto 0.51 K/mm3 (0.10-0.90); Monocytes Percent Auto 11.5 % (2.0-11.0); Neutrophils Absolute Auto 2.5 K/mm3 (1.7-7.2); Neutrophils Percent Auto 56.7 % (50.0-70.0); Platelet Count Result 165 K/mm3 (150-420); Red Blood Count 4.59 M/mm3 (4.20-5.40); Red Cell Distribution Width 12.5 % (11.6-14.4); White Blood Count 4.5 K/mm3 (4.8-10.8)
[2023-05-25 12:36] LABS: INR 0.9; Partial Thromboplastin Time 25.9 SEC (23.90-30.70); Prothrombin Time 10.4 Seconds (9.50-12.10)
== END 2023-05-25 11:46 | disposition home or self-care (01) ==
LOC: CHSLAB 11:48
PROVIDERS: PCP Internal Medicine; Visit Provider Internal Medicine
DX: M79.89 Other specified soft tissue disorders (principal); I50.9 Heart failure, unspecified
CPT/HCPCS: 36415; 85025; 85610; 85730; 93971

== ENCOUNTER 2024-03-21 08:21 | Outpatient (CLI) | payer MEDICARE, SELFPAY ==
--- NOTE | ~2024-03-21 | MM_ITS ---
EXAMINATION: MM screening lexus BI w brett HISTORY: Screening TECHNIQUE: Craniocaudal and mediolateral oblique 3-D tomosynthesis images were obtained and synthetic 2-D images were generated. CAD analysis was submitted and interpreted. COMPARISON: Comparison to multiple prior studies sequentially, with oldest reviewed study dated 01/01. BREAST PARENCHYMAL COMPOSITION: Dense: The breasts are extremely dense, which lowers the sensitivity of mammography. FINDINGS: There is possible architectural distortion in the lower outer quadrant of the right breast. There are developing asymmetries medially on CC view in the right breast. The left breast is stable without evidence for malignancy. IMPRESSION: 1. Possible architectural distortion with developing asymmetries of the right breast. 2. Additional mammographic views and possible breast ultrasound are recommended. BI-RADS Category 0: Incomplete: Needs additional imaging evaluation. Reviewed, dictated and finalized at location B. ING ALLEY OPERATOR IMPRESSION: 1. Possible architectural distortion with developing asymmetries of the right b reast. 2. Additional mammographic views and possible breast ultrasound are recommended . BI-RADS Category 0: Incomplete: Needs additional imaging evaluation.
== END 2024-03-21 08:22 | disposition home or self-care (01) ==
PROVIDERS: Absent Provider Internal Medicine Hematology & Oncology; PCP Internal Medicine
DX: Z12.31 Encounter for screening mammogram for malignant neoplasm of breast (principal); R92.8 Other abnormal and inconclusive findings on diagnostic imaging of breast
CPT/HCPCS: 77063; 77067

== ENCOUNTER 2024-04-03 08:47 | Outpatient (CLI) | payer MEDICARE, SELFPAY ==
--- NOTE | ~2024-04-03 | MMUS_ITS ---
EXAMINATION: MM diagnostic lexus RT w brett, US breast RT limited HISTORY: Right breast distortion TECHNIQUE: Additional 3-D tomosynthesis images of the right breast were performed and synthetic 2-D i mages were generated. CAD analysis was submitted and interpreted. High resolution limited right breas t ultrasound was performed. COMPARISON: 03/21/2024, 03/08/2023 BREAST PARENCHYMAL COMPOSITION:Dense: The breasts are extremely dense, which lowers the sensitivity o f mammography. FINDINGS: MAMMOGRAPHIC FINDINGS: Spot compression views demonstrate possible persistent area of subtle distortion at the outer right b reast. This may be present at the lower aspect on MLO views. No suspicious microcalcifications ossifi cation seen. ULTRASOUND: No sonographic abnormality seen in the upper, inner right breast. At the 7:00 position right breast, 5 cm from the nipple, there is a mildly irregular cystic area with possible surrounding soft tissue t hickening. There is a 4 mm parallel circumscribed hypoechoic mass at the 7:00 position right breast, 3 cm from the nipple, with a probable benign overall appearance. IMPRESSION: Possible versus an area of distortion at the outer right breast, without definite sonographic correl ate. Given history of prior breast carcinoma in this patient and dense breast tissue, breast MRI is r ecommended at this time to best assess for any active suspicious abnormalities. 6 month right breast ultrasound follow-up recommended to reassess the aforementioned sonographic find ings. BI-RADS Category 0: Incomplete: Needs additional imaging evaluation. Reviewed, dictated and finalized at location . TEST WORKER IMPRESSION: Possible versus an area of distortion at the outer right breast, without defin ite sonographic correlate. Given history of prior breast carcinoma in this heriberto ent and dense breast tissue, breast MRI is recommended at this time to best ass ess for any active suspicious abnormalities. 6 month right breast ultrasound follow-up recommended to reassess the aforement ioned sonographic findings. BI-RADS Category 0: Incomplete: Needs additional imaging evaluation.
== END 2024-04-03 08:48 | disposition home or self-care (01) ==
PROVIDERS: PCP Internal Medicine; Visit Provider Internal Medicine
DX: R92.8 Other abnormal and inconclusive findings on diagnostic imaging of breast (principal)
CPT/HCPCS: 76642; 77061; 77065; G0279

== ENCOUNTER 2024-07-08 10:24 | Outpatient (CLI) | payer MEDICARE, SELFPAY ==
--- NOTE | ~2024-07-08 | DEXA_ITS ---
Bone Density Report Name: MINDY PATEL Age: 79 Sex: Female Ethnicity: White Date of : 1945 Indication: postmenopausal osteoporosis; monitoring treatment; hysterectomy; Referring Provider: KAROL, ARABELLA Oakes Study: Bone densitometry was performed. Exam Date: July 08, 2024 Accession number: [id number] Bone Density: Region BMD T-score Z-score Classification AP Spine(L1-L4) 0.788 -2.4 0.4 Osteopenia Femoral Neck (Left) 0.642 -1.9 0.5 Osteopenia Total Hip (Left) 0.801 -1.2 1.0 Osteopenia Femoral Neck (Right) 0.661 -1.7 0.7 Osteopenia Total Hip (Right) 0.778 -1.3 0.8 Osteopenia Femoral Neck Mean 0.652 -1.8 0.6 Osteopenia Total Hip Mean 0.790 -1.2 0.9 Osteopenia World Health Organization criteria for BMD impression classify patients as: Normal (T-score at or above -1.0), Osteopenia (T-score between -1.0 and -2.5), or Osteoporosis (T-score at or below -2.5). 10-year Fracture Risk: FRAX not reported because: Treated for osteoporosis Previous Exams: Region Exam Age BMD T-score BMD Change BMD Change Date g/cm2 vs Baseline vs Previous AP Spine (L1-L4) 07/08/2024 79 0.788 -2.4 -0.080 (-9.2%) 0.011 (1.4%)# 02/28/2021 75 0.777 -2.5 -0.090 (-10.4% -0.087 (-10.1% 01/27/2019 73 0.864 -1.7 -0.003 (-0.4%) -0.003 (-0.4%) 11/23/2016 71 0.868 -1.6 Total Hip(Left) 07/08/2024 79 0.801 -1.2 0.054 (7.2%)# 0.097 (13.7%)# 02/28/2021 75 0.705 -1.9 -0.043 (-5.7%) -0.071 (-9.2%) 01/27/2019 73 0.776 -1.4 0.028 (3.8%)* 0.028 (3.8%)* 11/23/2016 71 0.747 -1.6 Total Hip(Right) 07/08/2024 79 0.778 -1.3 0.071 (10.1%)# 0.005 (0.6%)# 02/28/2021 75 0.774 -1.4 0.067 (9.4%)# 0.067 (9.4%)# 01/27/2019 73 0.707 -1.9 *Denotes significance at 95% confidence level, LSC for AP Spine = 0.022 g/cm2, LSC for Total Hip = 0.027 g/cm2 # Denotes dissimilar scan types or analysis methods Clinical Information Provided by Patient: Is being treated for osteoporosis Has used the following medications: Reclast (i.e. zoledronate), Vitamin D, Calcium Has the following medical conditions: Hysterectomy Patient maximum height was 64 Menopause Age: 48 No regular weight bearing exercise Drinks caffeinated beverages Onset of menses at age 13 Number of children 4 Impression: The patient has low bone mass, based on the Total Spine T-score. No significant bone loss was observed. Discussion: PATIENT UNDER TREATMENT WITH NO SIGNIFICANT BMD LOSS SINCE LAST EXAM. In an untreated patient, BMD typically declines with age. A lack of decline or gain is usually a sign that treatment is efficacious and fracture risk is reduced. It is important to ask patients whether they are taking their medications and to encourage continued and appropriate compliance with their osteoporosis therapies to reduce fracture risk. It is also important to review their risk factors and encourage appropriate calcium and vitamin D intakes, exercise, fall prevention and other lifestyle measures. Follow-Up: Consider a repeat BMD and Vertebral Fracture Assessment (VFA) exam in 2 years or sooner if medically necessary, to reassess this patient's status. Reported by: LEWIS on 07/08/2024 10:46:00 AM. Reviewed, dictated and finalized at location A.
--- OUTSIDE RECORDS SUMMARY | 2024-07-08 11:43 | XMS_ITS | Encounter Summary ---
Author Organization [facility] Healthcare Address [address] [place] [address] Care Team Providers Care Porcelain Slusher Name Role Phone Arjun Espino MD Primary Care Provider + [phone] Reason for Visit * Diagnostic Imaging (Routine) - Closed Specialty Diagnoses / Procedures Referred By Contac t Referred To Contact Procedures Breast Imaging US Outside Reference Malina Mejia NP Phone: tel: fax: Referral ID Status Reason Start Date Expiration Date Visits Re quested Visits Authorized [id number] Closed 04/05/2022 05/05/2023 1 1 Encounter Details Date Type Department Care Team (Late st Contact Info) Description 08/19/2018 Hospital Encounter [facility] [address] [place] [id number] Social History Tobacco Use Types Packs/Day [...] on file Legal Sex Female 2:09 PM OIL AND GAS PRINCIPAL Gender Identity Not on file Sexual Orientation Not on file documented as of this encounter Functional Status * Audit-C Score Answer Date of Assessment Author 2 07/04/2022 7:40 AM Amy Murphy RN * Question Answer Date of Assessment Author Q1: How often do you have a drink containing alcohol? 2-4 times a month 07/04/2022 7:40 AM SHAHBAZT Louis Liz RN Q2: How many drinks containing alcohol do you have on a typical day when you are drinking? 1 or 2 07/04/2022 7:40 AM Louis Murphy RN Q3: How often do you have six or more drinks on one occasion? Never 07/04/2022 7:40 AM Louis Murphy RN documented as of this encounter Plan of Treatment Not on file documented as of this encounter Procedures Procedure Name Priority Date/Time Associated Diagnosis Comments BREAST IMAGING US OUTSIDE REFERENCE Schedule Routine, Read Routine (OP Routine) 08/19/2018 12:00 AM CDT documented in this encounter Results * Breast Imaging US Outside Reference (08/19/2018 12:00 AM CDT) Impressions [facility] - 04/05/2022 10:56 AM OIL AND GAS PRINCIPAL These images are for Reference purposes only and have not been reviewed by [facility]iology. There will be no report generated by a [facility] Radiologist. Narrative [facility]MO[facility] - 04/05/2022 10:56 AM OIL AND GAS PRINCIPAL EXAMINATION: Images For Reference Purposes Only us Malina Mejia NP IMG MAMMO PROCEDURES Final Result [facility] documented in this encounter Visit Diagnoses Not on filedocumented in this encounter Care Teams Porcelain Slusher Relationship Specialty Start Date End Date Arjun Espino MD [address] [place] [address] PCP - General 12/19/16 documented as of this encounter
--- OUTSIDE RECORDS SUMMARY | 2024-07-08 11:43 | XMS_ITS | Encounter Summary ---
Author Organization [facility] Address [address] [place] [address] Phone Care Team Providers Care Vault Custodian Name Role Phone Arjun Espino MD Primary Care Provider + [phone] Encounter Details Date Type Department Care Team (Late st Contact Info) Description 07/18/2022 Orders Only 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
--- OUTSIDE RECORDS SUMMARY | 2024-07-08 11:43 | XMS_ITS | Encounter Summary ---
Author Organization [facility] Healthcare Address [address] [place] [address] Care Team Providers Care Market Garden Worker Name Role Phone Arjun Espino MD Primary Care Provider + [phone] Reason for Visit * Diagnostic Imaging (Routine) - Closed Specialty Diagnoses / Procedures Referred By Contac t Referred To Contact Procedures Breast Imaging Screening Outside Reference Malina Mejia NP Phone: tel: fax: Referral ID Status Reason Start Date Expiration Date Visits Re quested Visits Authorized [id number] Closed 04/05/2022 05/05/2023 1 1 Encounter Details Date Type Department Care Team (Late st Contact Info) Description 12/06/2017 Hospital Encounter [facility] [address] [place] [id number] Social History Tobacco Use Types Packs/Day [...] on file Legal Sex Female 2:09 PM HAIRSPRING SETTER Gender Identity Not on file Sexual Orientation Not on file documented as of this encounter Functional Status * Audit-C Score Answer Date of Assessment Author 2 07/04/2022 7:40 AM Amy Murphy RN * Question Answer Date of Assessment Author Q1: How often do you have a drink containing alcohol? 2-4 times a month 07/04/2022 7:40 AM Louis Murphy RN Q2: How many drinks containing alcohol [...] CDT) Impressions [facility] - 04/05/2022 11:05 AM HAIRSPRING SETTER These images are for Reference purposes only and have not been reviewed by [facility]iology. There will be no report generated by a [facility] Radiologist. Narrative [facility] - 04/05/2022 11:05 AM HAIRSPRING SETTER EXAMINATION: Images For Reference Purposes Only us Malina Mejia NP IMG MAMMO PROCEDURES Final Result [facility] documented in this encounter Visit Diagnoses Not on filedocumented in this encounter Care Teams Market Garden Worker Relationship Specialty Start Date End Date Arjun Espino MD [address] [place] [address] PCP - General 12/19/16 documented as of this encounter
--- OUTSIDE RECORDS SUMMARY | 2024-07-08 11:43 | XMS_ITS | Referral Summary ---
Author Organization [facility] Address [address] [place] [address] Care Team Providers Care Instrument Lens Inspector Name Role Phone Arjun Espino MD Primary Care Provider + [phone] Allergies No known active allergies Medications calcium citrate-vitamin D3 (CITRACAL WITH D) 315 mg-6.25 mcg (250 unit) per tabletIndicatio ns:Hypocalcemia Prevention,Prev ention of Vitamin D Deficiency Take 1 tablet by mouth daily before breakfast Active cyanocobalamin (Vitamin B-12) 100 mcg tabletIndicatio ns:Prevention of Vitamin B12 Deficiency Take 1 tablet (100 mcg total) by mouth daily before breakfast Active anastrozole (ARIMIDEX) 1 mg tabletIndicatio ns:breast cancer Take 1 tablet (1 mg total) by mouth daily before breakfast Active verapamil ER (VERELAN) 180 mg 24 hr capsuleIndicati ons:hypertensio n Take 1 capsule (180 mg total) by mouth daily before breakfast 2 Active acetaminophen (TYLENOL) 325 mg tablet Take 2 tablets (650 mg total) by mouth every 6 (six) hours as needed for pain Active oxyCODONE (ROXICODONE) 5 mg immediate release tabletIndicatio ns:Pain Take 1 tablet (5 mg total) by mouth every 4 (four) hours as needed for pain 5 tablet 3 Active Active Problems Problem Noted Date Diagnosed Date 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 Overview (06/13/2022): Added automatically from request for surgery [id number] Abnormal mammogram 04/24/2022 Dysphagia 12/07/2020 Overview (12/07/2020): Added automatically from request for surgery [id number] Hx of colonic polyps 12/07/2020 Overview (12/07/2020): Added automatically from request for surgery [id number] History of breast cancer 09/11/2017 Osteoporosis 12/20/2012 Overview (07/07/2016): Osteoporosis Adenomatous polyp of colon 03/05/2009 Overview (07/07/2016): Adenomatous colon polyp Immunizations Immunization Administration Dates Next Due Influenza, Trivalent, High D ose, Split, Preservative Free, Intramuscular 12/20/2012 Pneumococcal Polysaccharide PPV23 02/03/2009 Td, adsorbed 02/03/2009 Social History Tobacco Use Types Packs/Day Years Used Date Smoking Tobacco: Never Smokeless Tobacco: Never Tobacco Cessation:Counseling Given: Not Answered Alcohol Use Standard Drinks/Week Comments No 0 [...] on file Legal Sex Female 2:09 PM CIVIL DIVISION COMMANDER 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 Gender Identity Not on file Sexual Orientation Not on file Last Filed Vital Signs Vital Sign Reading Time Taken Comments Blood Pressure 140/82 07/04/2022 11:50 AM CDT Pulse 59 07/04/2022 11:50 AM CDT Temperature 36.2 C (97.2 F) 07/04/2022 7:45 AM CDT Respiratory Rate 12 07/04/2022 11:50 AM CDT Oxygen Saturation 97% 07/04/2022 11:50 AM CDT Inhaled Oxygen Concentration - - Weight 65.8 kg (145 lb) 06/14/2022 3:50 PM CDT Height 162.6 cm (5' 4 ) 06/14/2022 3:50 PM CDT Body Mass Index 24.89 06/14/2022 3:50 PM CDT Plan of Treatment Not on file Medical Devices Implanted Type Area Bag Sewer Device Identifier Shelf Expiration Date Model / Serial / Lot [employer] Peripheral [employer] Ghiatas 20ga 20cm 7cm Beaded Needle Breast Wire Localization [id number] - [id number] Implanted:Qty: 1 on 07/04/2022 at [facility] Right: Breast [employer] [id number] / / Insurance MEDICARE COMMERCIAL GENERIC MEDICARE [facility] COMMERCIAL GENERIC MEDICARE COMMERCIAL GENERIC Advance Directives For more information, please contact: [phone] Documents on File Type Date Recorded Patient Movement Therapist Expl anation ADVANCE DIRECTIVE 10/05/2022 4:06 PM DNR ADVANCE DIRECTIVE 07/04/2022 8:18 AM Power of [employer] School Auto Repair Teacher-Medical * Full Code (Latest Code Status on File) Date Activated Date Inactivated Comments 02/03/2021 11:42 AM 02/03/2021 5:52 PM Care Teams Instrument Lens Inspector Relationship Specialty Start Date End Date Arjun Espino MD [address] [place] [address] PCP - General 12/19/16
--- OUTSIDE RECORDS SUMMARY | 2024-07-08 11:43 | XMS_ITS | Encounter Summary ---
Author Organization [facility] Healthcare Address [address] [place] [address] Care Team Providers Care Surgery Assistant Name Role Phone Arjun Espino MD Primary Care Provider + [phone] Reason for Visit * Diagnostic Imaging (Routine) - Closed Specialty Diagnoses / Procedures Referred By Contac t Referred To Contact Procedures Breast Imaging Screening Outside Reference Malina Mejia NP Phone: tel: fax: Referral ID Status Reason Start Date Expiration Date Visits Re quested Visits Authorized [id number] Closed 04/05/2022 05/05/2023 1 1 Encounter Details Date Type Department Care Team (Late st Contact Info) Description 01/29/2020 Hospital Encounter [facility] [address] [place] [address] Social History Tobacco Use Types Packs/Day [...] on file Legal Sex Female 2:09 PM PRODUCTION MECHANIC Gender Identity Not on file Sexual Orientation [...] CDT) Impressions [facility] - 04/05/2022 10:59 AM PRODUCTION MECHANIC These images are for Reference purposes only and have not been reviewed by [facility] Radiology. There will be no report generated by a [facility] Radiologist. Narrative [facility] - 04/05/2022 10:59 AM PRODUCTION MECHANIC EXAMINATION: Images For Reference Purposes Only us Malina Mejia NP IMG MAMMO PROCEDURES Final Result [facility] documented in this encounter Visit Diagnoses Not on filedocumented in this encounter Care Teams Surgery Assistant Relationship Specialty Start Date End Date Arjun Espino MD [address] [place] [address] PCP - General 12/19/16 documented as of this encounter
--- OUTSIDE RECORDS SUMMARY | 2024-07-08 11:43 | XMS_ITS | Encounter Summary ---
Author Organization [facility] Healthcare Address [address] [place] [address] Care Team Providers Care Bender Machine Operator Name Role Phone Arjun Espino MD Primary Care Provider + [phone] Reason for Visit * Diagnostic Imaging (Routine) - Closed Specialty Diagnoses / Procedures Referred By Contac t Referred To Contact Procedures Breast Imaging Screening Outside Reference Malina Mejia NP Phone: tel: fax: Referral ID Status Reason Start Date Expiration Date Visits Re quested Visits Authorized [id number] Closed 04/05/2022 05/05/2023 1 1 Encounter Details Date Type Department Care Team (Late st Contact Info) Description 01/27/2019 Hospital Encounter [facility]iology [facility] [address] [place] [address] Social History Tobacco Use Types Packs/Day [...] on file Legal Sex Female 2:09 PM HAND ETCHER Gender Identity Not on file Sexual Orientation [...] CDT) Impressions [facility] - 04/05/2022 10:56 AM HAND ETCHER These images are for Reference purposes only and have not been reviewed by [facility] Radiology. There will be no report generated by a [facility] Radiologist. Narrative [facility] - 04/05/2022 10:56 AM HAND ETCHER EXAMINATION: Images For Reference Purposes Only us Malina Mejia NP IMG MAMMO PROCEDURES Final Result [facility] documented in this encounter Visit Diagnoses Not on filedocumented in this encounter Care Teams Bender Machine Operator Relationship Specialty Start Date End Date Arjun Espino MD [address] [place] [address] PCP - General 12/19/16 documented as of this encounter
--- OUTSIDE RECORDS SUMMARY | 2024-07-08 11:43 | XMS_ITS | Clinical Summary ---
Author Organization [facility] Address [address] [place] [address] Care Team Providers Care Agent Name Role Phone Arjun Espino MD Primary Care Provider + [phone] Allergies No known active allergies Medications calcium [...] (06/13/2022): Added automatically from request for surgery [id number] Abnormal mammogram 04/24/2022 Dysphagia 12/07/2020 Overview (12/07/2020): Added automatically from request for surgery [id number] Hx of colonic polyps 12/07/2020 Overview (12/07/2020): Added automatically from request for surgery [id number] History of breast cancer 09/11/2017 Osteoporosis 12/20/2012 Overview (07/07/2016): Osteoporosis Adenomatous polyp of colon 03/05/2009 Overview (07/07/2016): Adenomatous colon polyp Immunizations Immunization Administration Dates Next Due Influenza, Trivalent, High D ose, Split, Preservative Free, Intramuscular 12/20/2012 Pneumococcal Polysaccharide PPV23 02/03/2009 Td, adsorbed 02/03/2009 Surgical History Surgery Date Site/Laterality Comments TUBAL LIGATION Bilateral tubal ligation APPENDECTOMY 04/02/1972 - 04/01/1973 Appendectomy OTHER SURGICAL HISTORY 04/02/1978 - 04/01/1979 FIBROIDS: Hysterectomy COLONOSCOPY 01/15/2015 [facility] BREAST LUMPECTOMY 02/06/2017 Left BREAST BIOPSY 04/24/2022 Right HYSTERECTOMY Medical History Medical History Date Comments Hx Other Medical FIBROIDS GERD (gastroesophageal reflux disease) Colon polyp Breast cancer (HCC) Family History Medical History Relation Name Comments Esophageal cancer Brother Family his tory of malignant neoplasm of esophagus - (Added by TW Conv) Migraines Daughter Migraines; Car Accident Father accident; Breast cancer Grandchild 1 double mastect kuldip, recovered. 39 y/o in 2022 Breast cancer Grandchild 2 double mastect kuldip, mets to brain, spine, ribs, etc. 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 Gender Identity Not on file Sexual Orientation Not on file Obstetrics History Last Filed Vital Signs Vital Sign Reading [...] 06/14/2022 3:50 PM CDT Plan of Treatment Health Maintenance Due Date Last Done Comments Depression Screening 1945 Osteoporosis Screening-Bone Density Scan 1943 Hepatitis B Screening 1961 Well Visit 65+ 2008 DTaP/Tdap/Td Vaccine (1 - Tdap) 02/04/2009 9 Covid-19 Vaccine (3 - Pfizer risk series) 06/25/2020 05/28/2020, 05/07/2020 Zoster Vaccine (2 of 2) 09/06/2020 07/12/2020 Fall Risk Assessment 07/05/2023 07/04/2022 Pneumococcal vaccine 65+ Completed 01/10/2017, 11/0 07/2008 Influenza Vaccine Completed 01/07/2024, , 01/21/2020, Additional history exists Medical Devices Implanted Type Area Maintenance Mechanic 2Nd Shift Device Identifier Shelf Expiration Date Model / Serial / Lot Bard Peripheral Vascular Ghiatas 20ga 20cm 7cm Beaded Needle Breast Wire Localization 05123 - [id number] Implanted:Qty: 1 on 07/04/2022 at [facility] Right: Breast Bard Peripheral Vascular [id number] / / Insurance MEDICARE COMMERCIAL GENERIC MEDICARE FORMERLY [facility], [facility] COMMERCIAL GENERIC MEDICARE COMMERCIAL GENERIC Advance Directives For more information, please contact: [phone] Documents on File Type Date Recorded Patient Skin Grader Expl anation ADVANCE DIRECTIVE 10/05/2022 4:06 PM DNR ADVANCE DIRECTIVE 07/04/2022 8:18 AM Power of Rivet Tapping Machine Operator-Medical * Full Code (Latest Code Status on File) Date Activated Date Inactivated Comments 02/03/2021 11:42 AM 02/03/2021 5:52 PM Care Teams Agent Relationship Specialty Start Date End Date Arjun Espino MD [address] [place] [address] PCP - General 12/19/16
--- OUTSIDE RECORDS SUMMARY | 2024-07-08 11:43 | XMS_ITS | Data Portability ---
Author Organization [facility] [facility] ([place]) Address [address] [place] [address] Care Team Providers Care Clinical Audiologist Name Role Phone JOSE BLACKBURN Primary Care Provider [phone] Assessment No assessment recorded. Plan of Treatment Reminders Order Date Submit Date Provider Last Modified By Organization Details Last Modified Time Details Appointments None record ed. Lab None record ed. Referral None record ed. Procedures None record ed. Surgeries None record ed. Imaging None record ed. Medication Orders None record ed. Patient TargetsNo targets recorded. Patient InstructionsNo instructions recorded. Reason for Referral None Reported. Problems Name Problem SNOMED Code Status Onset Date Resolution Date Notes Provider Name and Address Organization Details Recorded Time Pain of right knee joint 8115886152898 00 Active 2023 Doug Acuña MD [address] [place] [address], [phone], [facility] 4 19:05:45 Osteoarthri tis of right knee joint 6860125186335 00 Active 2023 Doug Acuña MD [address] [place] [address], [phone], [facility] 4 11:07:58 Problem Notes None recorded. Procedures Surgical History Date Name Laterality Status Provider Name and Address Organization Details Recorded Time 02/12/20 24 [place] Procedure completed Marcelina Channels [facility] 02/12/2024 17:58:41 Appendectomy completed Not Available Health Note 02/05/2024 11:16:03 Colonoscopy with biopsy completed Not Available Health Note 02/05/2024 11:16:03 Partial hysterectomy completed Not Available Health Note 02/05/2024 11:16:03 Imaging Results None recorded. Procedure Notes None recorded. Medical Equipment None Reported. Medications Name Sig Start Date Stop Date Status Note LastModified by Organization Details LastModified Time exemestane 25 mg tablet TAKE 1 TABLET BY MOUTH ONCE DAILY active Not Available Not Available No t Available Vitals None Recorded Social History Question Answer Notes LastModified by Organizat ion Details LastModified Time Tobacco Smoking Status Never Smoker Not Available Health Note 02/05/2024 11:16:03 Do You Have An Advance Directive? Yes [email or web address] Information not available 02/05/2024 What Is Your Level Of Alcohol Consumption? Occasional [email or web address] Information not available 02/05/2024 How Many Times Per Week Do You Consume Alcohol? Less Than 1 Time Per Week [email or web address] Information not available 02/05/2024 What Is Your Level Of Caffeine Consumption? Moderate [email or web address] Information not available 02/05/2024 What Is Your Code Status? DNR [email or web address] Information not available 02/05/2024 Are You Currently Employed? No [email or web address] Information not available 02/05/2024 What Is Your Occupation? Retired [email or web address] Information not available 02/05/2024 How Many Times Per Week Do You Exercise? 1-2 Times Per Week [email or web address] Information not available 02/05/2024 What Was The Date Of Your Most Recent Tobacco Screening? 02/12/2024 [email or web address] Information not available 02/05/2024 What Is Your Relationship Status? [email or web address] Information not available 02/05/2024 Do You Use Any Illicit Or Recreational Drugs? No [email or web address] Information not available 02/05/2024 Sex: Unknown Functional Status Question Answer Note LastModified by Organizat ion Details LastModified Time What is your exercise level? Occasional [email or web address] Information not available 02/05/2024 Mental Status None recorded. Family History Relationship Description Onset Age of this Age Resolved Age Notes LastModified by Organization Details LastModified Time Mother Family history of malignant neoplasm [email or web address] Not available 2023 11:16:02 Mother Osteoporosis [email or web address] Not availa ble 02/05/2024 11:16:02 Maternal Grandmother Family history of malignant neoplasm [email or web address] Not available 2023 11:16:02 Medical History Condition Response Diabetes N Anxiety Disorder N Bleeding Disorder N Attention-deficit Hyperactivity Disorder N High Blood Pressure Y Arthritis N Hyperlipidemia N Cancer Y Stroke N Thyroid Problems N Asthma N Depression N COPD N Anemia N Seizures N Heart Disease N Fibromyalgia N Osteoporosis N Kidney Disease N Gynecological HistoryNo gynecological history recorded. Obstetrics History GPAL:G 0 P 0 0 0 0 Past Encounters Encounter ID Performer Location Encounter Start Date Encounter Closed Date Diagnosis/Indication Diagnosis SNOMED-CT Code Diagnosis ICD10 Code Diagnosis Note [id number] Doug Acuña MD [facility] [address] [address] [facility] [place] [address] 02/12/2024 10:39:46 02/12/2024 11:12:09 Pain of right knee joint [id number] 31988 M25.561 Osteoarthr itis of right knee joint 9504297919 42805 M17.11 Health Concerns Section Related Observation LastModified by Organization Detai ls LastModified Time None Recorded Concern Status LastModified by Organization Details LastModified Time None Recorded Advance Directives Directive Y: Payers Encounter Date Sequence Insurance Name Policy Number Policy Payton Covered Member ID Payton Member ID Guarantor Name 02/12/2024 1 [place] Meghna Nelson Trell [id number] Meghna Cai 02/12/2024 2 [facility] (MEDICARE SUPPLEMENT) Meghna Trell [id number] Meghna Cai Notes Date Note Type Note Provider Name and Address Organization Details Recorded Time text/html Meghna Barneyaleja a 78 year oldfemalepresenting for care. Doug Acuña MD [address] [place] [address], [phone], [facility] 02/13/2024 08:55:37 OBGyn Episode No OBEpisode recorded.
--- OUTSIDE RECORDS SUMMARY | 2024-07-08 11:43 | XMS_ITS ---
Author Organization Unknown Address [address] [place] [phone] Phone Care Team Providers Care Head Batcher Name Role Phone YAN STEVE Mukherjee Attending Unavailable BERE GARCIA Primary Unavailable Immunization Immunization Date Status Additional Notes Code Code System pneumococcal conjugate PCV 7 01/10/2017 Completed 100 CVX Influenza, high-dose, trivalent, PF 01/10/2017 Completed 135 CVX Influenza, split virus, quadrivalent, PF 01/02/2019 Completed 150 CVX Influenza, split virus, quadrivalent, preservative 01/21/2020 Completed 158 C VX Influenza, split virus, quadrivalent, preservative 01/23/2022 Completed 158 C VX zoster recombinant 07/12/2020 Completed 187 CVX Influenza, high-dose, quadrivalent, PF 01/19/2021 Completed 197 CVX Influenza, high-dose, quadrivalent, PF 01/07/2024 Completed 197 CVX COVID-19, mRNA, LNP-S, PF, 3 0 mcg/0.3 mL dose 05/07/2020 Completed 208 CVX COVID-19, mRNA, LNP-S, PF, 3 0 mcg/0.3 mL dose 05/28/2020 Completed 208 CVX COVID-19, mRNA, LNP-S, PF, 3 0 mcg/0.3 mL dose 03/03/2021 Completed 208 CVX Social History Type Status Start Date End Date Code Code Syst em Smoking History Never smoker (Never Smoked) [id number] SNOMED CT Sex Female Hospital Discharge Instructions Should you have any questions prior to discharge, please contact a member of your healthcare team. If you have left the hospital and have any questions, please contact your primary care physician. Reason For Referral No Data Found Procedures Procedure Name Date Status Code Code Syste m Arthrocentesis Aspir&/Inj Ma regina Jt/Bursa w/o US 02/12/2024 completed CPT Implants Implanted GERI Status Assigning Authority Procedure Date Lot Number Serial Number Manufacturing Date Expiration Date Distinct ID Code Brand Name Model Number ACRYSOF IQ IOL UV WITH BLUE LIGHT FILTER- RIGHT Active XCAPSL CTRC RMVL INSJ IO LENS PROSTH W/O ECP 02/05 [id number] 07/31/2023 ACRYSO F IQ IOL SN60WF POWER: 19.0 D Allergies and Adverse Reactions Allergy Substance Reaction Severity Start Date Concern Status Co de Code System NKDA - NO KNOWN DRUG ALLERGIES Active Plan of Treatment Cataract Extraction w/ IOL R 02/05/2019 Encounters Encounter Diagnosis Start Date Code Code Sys tem Unilateral primary osteoarthritis, right knee 02/12/20 24 SNOMED-CT Personal Care Team Section Performer Name Performer Role Active Date Inactive Da te
--- OUTSIDE RECORDS SUMMARY | 2024-07-08 11:43 | XMS_ITS | Encounter Summary ---
Author Organization [facility] Healthcare Address [address] [place] [address] Care Team Providers Care Operational Communication Chief Name Role Phone Arjun Espino MD Primary Care Provider + [phone] Reason for Visit * Diagnostic Imaging (Routine) - Closed Specialty Diagnoses / Procedures Referred By Contac t Referred To Contact Procedures Breast Imaging Screening Outside Reference Malina Mejia NP Phone: tel: fax: Referral ID Status Reason Start Date Expiration Date Visits Re quested Visits Authorized [id number] Closed 04/05/2022 05/05/2023 1 1 Encounter Details Date Type Department Care Team (Late st Contact Info) Description 08/19/2018 12:05 AM CDT Hospital Encounter [facility] [address] [place] [address] Social History Tobacco Use Types Packs/Day [...] on file 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 There will be no report generated by a [facility] Radiologist. Narrative [facility]MO[facility] - 04/05/2022 10:56 AM ELECTRIC STOP INSTALLER EXAMINATION: Images For Reference Purposes Only us Malnia Mejia NP IMG MAMMO PROCEDURES Final Result [facility] documented in this encounter Visit Diagnoses Not on filedocumented in this encounter Care Teams Operational Communication Chief Relationship Specialty Start Date End Date Arjun Espino MD [address] [place] [address] PCP - General 12/19/16 documented as of this encounter
--- OUTSIDE RECORDS SUMMARY | 2024-07-08 11:44 | XMS_ITS ---
Author Organization Unknown Address [address] [place] [phone] Phone Care Team Providers Care Instructional Developer Name Role Phone YAN STEVE Mukherjee Attending [...] em Smoking History Never smoker (Never Smoked) [id number] SNOMED CT Sex Female Hospital Discharge Instructions Should you have any questions prior to discharge, please contact a member of your healthcare team. If you have left the hospital and have any questions, please contact your primary care physician. Reason For Referral No Data Found Implants Implanted GERI Status Assigning Authority Procedure Date Lot Number Serial Number Manufacturing Date Expiration Date Distinct ID Code Brand Name Model Number ACRYSOF IQ IOL UV WITH BLUE LIGHT FILTER- RIGHT Active XCAPSL CTRC RMVL INSJ IO LENS PROSTH W/O ECP 02/05 [id number] 07/31/2023 ACRYSO F IQ IOL SN60WF POWER: 19.0 D Allergies and Adverse Reactions Allergy Substance Reaction Severity Start Date Concern Status Co de Code System NKDA - NO KNOWN DRUG ALLERGIES Active Plan of Treatment Cataract Extraction w/ IOL R 02/05/2019 Encounters Encounter Diagnosis Start Date Code Code Sys tem Other tear of medial meniscu s, current injury, right knee, subsequent encounter 02/13/2023 SNOMED-CT Personal Care Team Section Performer Name Performer Role Active Date Inactive Da te
--- OUTSIDE RECORDS SUMMARY | 2024-07-08 11:44 | XMS_ITS | Encounter Summary ---
Author Organization [facility] Address [facility] [place] [address] Care Team Providers Care Clinical Trial Data Manager Name Role Phone Arjun Espino MD Primary Care Provider Encounter Details Date Type Department Care Team (Late st Contact Info) Description 06/28/2023 MyChart Message Enc [place] [id number] [place] [address] Harman Morrison MD [address] [place], [place] [address] Osteoporosis Social History Tobacco Use Types Packs/Day Years Used Date Smoking Tobacco: Never Smokeless Tobacco: Never Comments Unknown Sex and Gender Information Value Date Recorded Sex Assigned at Female 05/14/2024 3:37 PM KEG HEADER Legal Sex Female 5:45 PM KEG HEADER Gender Identity Not on file Sexual Orientation Not on file documented as of this encounter Plan of Treatment Upcoming Encounters Date Type Department Care Team (Late Contact Info) Description 08/07/2024 10:00 AM CDT Appointment [facility] [place] [address] Harman Morrison MD [address] [place], [place] [address] 01/07/2025 10:40 AM CDT Office Visit [facility] [address] [place] [address] Harman Morrison MD [address] [place], [place] [address] documented as of this encounter Visit Diagnoses Not on filedocumented in this encounter Care Teams Clinical Trial Data Manager Relationship Specialty Start Date End Date Arjun Espino MD [address] [place] [phone] PCP - General INTERNAL MEDICINE 09/22/20 documented as of this encounter
--- OUTSIDE RECORDS SUMMARY | 2024-07-08 11:44 | XMS_ITS | Clinical Summary ---
Author Organization [facility] Address [address] [place] [address] Care Team Providers Care Lock And Dam Repairer Name Role Phone Arjun Espino MD Primary Care Provider Allergies No known active allergies Medications Memantine HCl 10 MG/5ML Solution 3 Active Cyanocobalamin 100 MCG Tab Take 100 mcg by mouth daily. 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 90 tablet 3 5 07/03/19 26 Active exemestane (AROMASIN) 25 MG tablet Take 1 tablet by mouth daily. 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, unspecified estrogen receptor status ([facility]/HCC [facility]/HCC) [C50.011]); Lab Results 07/02/2024 11:18 AM CDT - 07/02/2024 11:59 PM CDT Hospital Encounter [facility] [address] [place] [address] Arabella Roberson MD Discharge Disposition: Home or Self Care (Routine Discharge) 07/02/2024 Orders Only [place] [address] [place] [address] Arabella Roberson MD 07/02/2024 Travel 05/20/2024 11:00 AM STAFF NURSE ANESTHETIST - 05/20/2024 11:59 PM STAFF NURSE ANESTHETIST Hospital Encounter [facility] at [address] [address] Brayan Matute MD Discharge Disposition: Home or Self Care (Routine Discharge) 05/20/2024 Travel 04/14/2024 8:44 AM STAFF NURSE ANESTHETIST - 04/14/2024 11:59 PM STAFF NURSE ANESTHETIST Hospital Encounter [facility] [address] [place] [address] Arabella Roberson MD Discharge Disposition: Home or Self Care (Routine Discharge) 04/14/2024 Travel 04/10/2024 Telephone [place] [address] [place] [address] Arabella Roberson MD Breast Imaging (Mri breast order placed at [facility] as [facility] does not do them. ) 04/09/2024 Orders Only [place] [address] [place] [address] Arabella Roberson MD 04/09/2024 Orders Only [facility] [address] Arabella Roberson MD from Last 3 Months Social History Tobacco Use Types Packs/Day Years Used Date Smoking Tobacco: Never Smokeless Tobacco: Never Tobacco Cessation:Counseling Given: Not Answered Comments Unknown Sex and Gender Information Value Date Recorded Sex Assigned at Female 05/14/2024 3:37 PM STAFF NURSE ANESTHETIST Legal Sex Female 5:45 PM STAFF NURSE ANESTHETIST Gender Identity Not on file Sexual Orientation Not on file Last Filed Vital Signs Vital Sign Reading Time Taken Comments Blood Pressure 134/85 07/02/2024 11:45 AM CDT Pulse 84 07/02/2024 11:45 AM CDT Temperature 36.3 C (97.3 F) 07/02/2024 11:45 AM CDT Respiratory Rate 16 07/02/2024 11:45 AM CDT Oxygen Saturation 99% 07/02/2024 11:45 AM CDT Inhaled Oxygen Concentration - - Weight 65.9 kg (145 lb 3.2 oz) 07/02/2024 11:45 AM CDT Height 162.6 cm (5' 4 ) 04/06/2021 12:36 PM STAFF NURSE ANESTHETIST Body Mass Index 24.92 04/06/2021 12:36 PM STAFF NURSE ANESTHETIST Plan of Treatment Upcoming Encounters Date Type Department Care Team (Late st Contact Info) Description 08/07/2024 10:00 AM CDT Appointment [facility] [address] [place], [place] [address] [address] Arabella Roberson MD [address], [place] [address] 01/07/2025 10:40 AM CDT Office Visit [facility] [place] [address] Arabella Roberson MD [address], [place] [address] Health Maintenance Due Date Last Done Comments Annual Medicare Wellness Visit 2008 Dexa Scan (General) 2008 DTaP, Tdap and Td Vaccines ( 1 - Tdap) 02/04/2009 02/03/2009 Pneumococcal Vaccine: 65+ Years (2 of 2 - PCV) 01/10/2018 01/10/2017, 02/03/2009 RSV Immunization or 60+ Years (1 - 1-dose 75+ series) 2018 Zoster Vaccines (2 of 2) 09/06/2020 07/12/2020 COVID-19 Vaccine ( - 2023-2 5 season) 2023 03/03/2021, 05/28/2020, 05/07/2020 Meningococcal B Vaccine Aged Out No l onger eligible based on patient's age to complete this topic Meningococcal Vaccine Aged Out No wolfgang jamir eligible based on patient's age to complete this topic RSV Immunizations Under 20 Months Aged Out No longer eligible b ased on patient's age to complete this topic Procedures Procedure Name Priority Date/Time Associated Diagnosis Comments COMPREHENSIVE METABOLIC PANEL Routine 07/02/2024 11:25 AM CDT 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, unspecified estrogen receptor status (CMS/HCC HHS/HCC) CBC W/DIFF AUTOMATED Routine 07/02/2024 11:25 AM CDT 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, unspecified estrogen receptor status (CMS/HCC HHS/HCC) MRI BREAST MAGALY WWO CON BIRAD NAKITA 04/14/2024 10:01 AM STAFF NURSE ANESTHETIST 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, unspecified estrogen receptor status ([facility]/HCC HHS/HCC) from Last 3 Months Results * (ABNORMAL) COMPREHENSIVE METABOLIC PANEL (07/02/2024 11:25 AM CDT) SODIUM S/P/B 141 136 - 145 MMOL/L 07/02/2024 11:51 AM CDT [facility] POTASSIUM S/P/B 3.9 3.5 - 5.1 MMOL/L 07/02/2024 11:51 AM CDT [facility] CHLORIDE S/P/B 104 98 - 107 MMOL/L 07/02/2024 11:51 AM CDT [facility] CO2 30.1 21.0 - 32.0 MMOL/L 07/02/2024 11:51 AM CDT [facility] GLUCOSE 100(H) 70 - 99 MG/DL 07/02/2024 11:51 AM CDT [facility] Comment: FASTING GLUCOSE 100 TO 125 MG/DL IS CONSISTENT WITH IMPAIRED FASTING GLUCOSE. FASTING GLUCOSE >125 MG/DL IS CONSISTENT WITH DIABETES. RANDOM GLUCOSE >200 MG/DL WITH HYPERGLYCEMIC SYMPTOMS IS CONSISTENT WITH DIABETES. PER ADA GUIDELINES BUN 19 6 - 24 MG/DL 07/02/2024 11:51 AM T [facility] CREATININE S/P/B 0.97 0.55 - 1.02 MG/DL 07/02/2024 11:51 AM T [facility] CALCIUM S/P/B 8.7 8.4 - 10.5 MG/DL 07/02/2024 11:51 AM T [facility] BILIRUBIN TOTAL S/P/B 0.5 0.2 - 1.0 MG/DL 07/02/2024 11:51 AM T [facility] Comment: THIS ASSAY IS NOT RECOMMENDED FOR PATIENTS UNDERGOING TREATMENT WITH ELTROMBOPAG DUE TO THE POTENTIAL FOR FALSELY ELEVATED RESULTS. ALKALINE PHOSPHATASE S/P/B 79 55 - 142 U/L 07/02/2024 11:51 AM [facility] AST 15 15 - 37 U/L 07/02/2024 11:51 AM [facility] ALT 23 14 - 59 U/L 07/02/2024 11:51 AM [facility] TOTAL PROTEIN S/P/B 7.6 6.4 - 8.2 G/DL 07/02/2024 11:51 AM [facility] ALBUMIN S/P/B 3.8 3.4 - 5.0 G/DL 07/02/2024 11:51 AM [facility] ANION GAP 6.9 5.0 - 15.0 MMOL/L 07/02/2024 11:51 AM [facility] OSMOLALITY (CALC) 294 MOSM/KG 025 11:51 AM [facility] Comment:REFERENCE RANGE NOT ESTABLISHED GFR ESTIMATE 59(L) >89 ML/MIN/1. 73 M2 07/02/2024 11:51 AM [facility] GFR NOTES GFR REFERENCE S: 07/02/2024 11:51 AM [facility] Comment: THE ESTIMATED GFR IS CALCULATED USING THE 2020 CKD-EPI EQUATION. THE FOLLOWING CATEGORIES FOR GRADING RENAL FUNCTION ARE RECOMMENDED BY THE INTERNATIONAL SOCIETY OF NEPHROLOGY (KDIGO 2012 CLINICAL PRACTICE GUIDELINE). G1,NORMAL OR HIGH: >89 ml/min/1.73 m2 G2,MILDLY DECREASED: 60-89 ml/min/1.73 m2 G3A,MILDLY TO MODERATELY DECREASED: 45-59 ml/min/1.73 m2 G3B,MODERATELY TO SEVERELY DECREASED: 30-44 ml/min/1.73 m2 G4,SEVERELY DECREASED: 15-29 ml/min/1.73 m2 G5,KIDNEY FAILURE: <15 ml/min/1.73 m2 07/02/2024 11:2 5 AM CDT us Arabella Vipin Roberson MD LABORATORY Final Result [facility] [address] [place] [address], * (ABNORMAL) CBC W/DIFF AUTOMATED (07/02/2024 11:25 AM CDT) WBC 7.00 4.00 - 10.80 x10'3/uL 07/02/2024 11:31 AM CDT [facility] RBC 4.42 4.10 - 5.40 x10'6/uL 07/02/2024 11:31 AM CDT [facility] HGB 13.1 12.0 - 16.0 G/DL 07/02/2024 11:31 AM CDT [facility] HCT 40.9 36.0 - 47.0 % 07/02/2024 11:31 AM CDT [facility] MCV 92.5 78.0 - 100.0 FL 07/02/2024 11:31 AM CDT [facility] MCH 29.6 27.0 - 31.0 PG 07/02/2024 11:31 AM CDT [facility] MCHC 32.0(L) 33.0 - 36.0 G/DL 07/02/2024 11:31 AM CDT [facility] RDW 12.1 11.5 - 14.5 % 07/02/2024 11:31 AM CDT [facility] PLT 201 150 - 350 x10'3/uL 07/02/2024 11:31 AM CDT [facility] MPV 10.6(H) 7.4 - 10.4 FL 07/02/2024 11:31 AM CDT [facility] CBC COMMENT NORMAL REFERENCE RANGE NOT ESTABLISHED FOR THE PROPORTIONAL LEUKOCYTE DIFFERENTIAL. 07/02/2024 11:31 AM CDT [facility] NEUTROPHILS % 65.8 % 07/02/2024 11:31 AM CDT [facility] LYMPHOCYTES % 22.6 % 07/02/2024 11:31 AM CDT [facility] MONOCYTES % 8.1 % 07/02/2024 11:31 AM CDT [facility] EOSINOPHILS % 2.7 % 07/02/2024 11:31 AM CDT [facility] BASOPHILS % 0.7 % 07/02/2024 11:31 AM CDT [facility] IMMATURE GRANS % 0.1 % 07/03/19 11:31 AM CDT [facility] NRBC % 0.0 % 07/02/2024 11:31 AM CDT [facility] ABS. NEUTROPHILS 4.60 1.60 - 8.30 x10'3/uL 07/02/2024 11:31 AM CDT [facility] ABS. LYMPHOCYTES 1.58 0.80 - 4.70 x10'3/uL 07/02/2024 11:31 AM CDT [facility] ABS. MONOCYTES 0.57 0.00 - 1.50 x10'3/uL 07/02/2024 11:31 AM CDT [facility] ABS. EOSINOPHILS 0.19 0.00 - 0.40 x10'3/uL 07/02/2024 11:31 AM CDT [facility] ABS. BASOPHILS 0.05 0.00 - 0.20 x10'3/uL 07/02/2024 11:31 AM CDT [facility] ABS. IMMATURE GRANULOCYTES 0.01 0.00 - 0.03 x10'3/uL 07/02/2024 11:31 AM CDT [facility] ABS. NUCLEATED RBC'S 0.00 0.00 - 0.01 x10'3/uL 07/02/2024 11:31 AM CDT [facility] 07/02/2024 11:2 5 AM CDT us Arabella Roberson MD LABORATORY Final Result [facility] [address] [place] [address], * MRI BREAST MAGALY WWO CON BIRAD (04/14/2024 10:01 AM STAFF NURSE ANESTHETIST) Anatomical Region Laterality Modality Breast Bilateral Magnetic Resonan ce 04/14/2024 1:58 PM STAFF NURSE ANESTHETIST Impressions 04/14/2024 2:01 PM STAFF NURSE ANESTHETIST IMPRESSION: No MRI findings suggestive of invasive breast malignancy. Recommendation: 1: Routine screening mammogram Bilateral in Mar 2025 Assessment: ACR BI-RADS CATEGORY 2 - BENIGN FINDING(S) Ordered By: ARABELLA ROBERSON Interpreted By: Bruno Rodriguez MD, 04/14/2024 1:58 PM Narrative 04/14/2024 2:01 PM STAFF NURSE ANESTHETIST [address] 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 Patient placed prone in bilateral dedicated breast coil with images acquired on MRI scanner. Bilateral simultaneous acquisitions obtained with axial slices pre and post (in multiple phases) after the uneventful IV infusion of 12 mL Dotarem. 3D Reconstructions (MIPS & reformatted imaging planes) were obtained using dedicated separate software system/workstation. Study supplemented with computer-aided detection (CAD) system. FINDINGS: MR Based Breast Composition: Heterogeneous fibroglandular tissue. Background Parenchymal Enhancement: Minimal level. Right breast: Posttreatment change. No malignant enhancement pattern or mass. No skin, nipple, chest wall, or lymph node abnormality. Left breast: Posttreatment change. No malignant enhancement pattern or mass. No skin, nipple, chest wall, or lymph node abnormality. us Arabella Vipin Roberson MD MRI Final Result from Last 3 Months Insurance [facility] MEDICARE Care Teams Lock And Dam Repairer Relationship Specialty Start Date End Date Arjun Espino MD [address] [place] [address] PCP - General INTERNAL MEDICINE 6/23/21
== END 2024-07-08 10:25 | disposition home or self-care (01) ==
PROVIDERS: PCP Internal Medicine; Visit Provider Internal Medicine Hematology & Oncology
DX: C50.011 Malignant neoplasm of nipple and areola, right female breast (principal); M85.89 Other specified disorders of bone density and structure, multiple sites
CPT/HCPCS: 77080

== ENCOUNTER 2025-03-23 12:13 | Outpatient (CLI) | payer MEDICARE, SELFPAY ==
--- OUTSIDE RECORDS SUMMARY | 2017-12-05 23:00 | XMS_ITS | Encounter Summary ---
Author Organization [facility] Healthcare Address [address] [place] [address] Care Team Providers Care Trauma Doctor Name Role Phone Arjun Espino MD Primary Care Provider + [phone] Reason for Visit * Diagnostic Imaging (Routine) - Closed Specialty Diagnoses / Procedures Referred By Contac t Referred To Contact Procedures Breast Imaging Screening Outside Reference Malina Mejia NP Phone: tel: fax: Referral ID Status Reason Start Date Expiration Date Visits Re quested Visits Authorized [id number] Closed 04/05/2022 05/05/2023 1 1 Encounter Details Date Type Department Care Team (Late st Contact Info) Description 12/06/2017 Hospital Encounter [facility] [address] [place] [id number] Social History Tobacco Use Types Packs/Day Years Used Date Smoking Tobacco: Never Smokeless Tobacco: Never Alcohol Use Standard Drinks/Week Comments No 0 (1 standard drink = 0.6 oz pur e alcohol) AUDIT-C Answer Date Recorded Q1: How often do you have a drink containing alc ohol? 2-4 times a month 07/04/2022 Q2: How many drinks containi ng alcohol do you have on a typical day when you are drinking? 1 or 2 07/04/2022 Q3: How often do you have si x or more drinks on one occasion? Never 07/04/2022 Personal Safety Answer Date Recorded Have you ever been in or are you currently in a harmful physical or emotional relationship or is someone making you feel afraid or unsafe? Denies 07/04/2022 Comments No Sex and Gender Information Value Date Recorded Sex Assigned at Not on file Legal Sex Female 2:09 PM DIGITAL PRINTER OPERATOR Gender Identity Not on file Sexual Orientation Not on file documented as of this encounter Plan of Treatment Not on file documented as of this encounter Procedures Procedure Name Priority Date/Time Associated Diagnosis Comments BREAST IMAGING MG SCREENING OUTSIDE REFERENCE Routine 12/06/2017 12:00 AM CDT documented in this encounter Results * Breast Imaging Screening Outside Reference (12/06/2017 12:00 AM CDT) Impressions [facility] - 04/05/2022 11:05 AM DIGITAL PRINTER OPERATOR These images are for Reference purposes only and have not been reviewed by [facility] Radiology. There will be no report generated by a [facility] Radiologist. Narrative [facility] - 04/05/2022 11:05 AM DIGITAL PRINTER OPERATOR EXAMINATION: Images For Reference Purposes Only us Malina Mejia STAYING MACHINE OPERATOR IMG MAMMO PROCEDURES Final Result [facility] documented in this encounter Visit Diagnoses Not on filedocumented in this encounter Care Teams Trauma Doctor Relationship Specialty Start Date End Date Arjun Espino MD [address] [place] [address] PCP - General 12/19/16 documented as of this encounter
--- OUTSIDE RECORDS SUMMARY | 2018-08-18 23:00 | XMS_ITS | Encounter Summary ---
Author Organization [facility] Healthcare Address [address] [place] [address] Care Team Providers Care Dry Cleaning Checker Name Role Phone Arjun Espino MD Primary Care Provider + [phone] Reason for Visit * Diagnostic Imaging (Routine) - Closed Specialty Diagnoses / Procedures Referred By Contac t Referred To Contact Procedures Breast Imaging US Outside Reference Malina Mejia NP Phone: tel: fax: Referral ID Status Reason Start Date Expiration Date Visits Re quested Visits Authorized [id number] Closed 04/05/2022 05/05/2023 1 1 Encounter Details Date Type Department Care Team (Late st Contact Info) Description 08/19/2018 Hospital Encounter [facility]) [address] [place] [address] Social History Tobacco Use Types Packs/Day [...] on file Legal Sex Female 2:09 PM RETAIL SALES 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 Gender Identity Not on file Sexual Orientation Not on file documented as of this encounter Plan of Treatment Not on file documented as of this encounter Procedures Procedure Name Priority Date/Time Associated Diagnosis Comments BREAST IMAGING US OUTSIDE REFERENCE Schedule Routine, Read Routine (OP Routine) 08/19/2018 12:00 AM CDT documented in this encounter Results * Breast Imaging US Outside Reference (08/19/2018 12:00 AM CDT) Impressions [facility] - 04/05/2022 10:56 AM RETAIL SALES CLERK These images are for Reference purposes only and have not been reviewed by [facility] Radiology. There will be no report generated by a [facility] Radiologist. Narrative [facility] - 04/05/2022 10:56 AM RETAIL SALES CLERK EXAMINATION: Images For Reference Purposes Only us Malina Mejia NP IMG MAMMO PROCEDURES Final Result [facility] documented in this encounter Visit Diagnoses Not on filedocumented in this encounter Care Teams Dry Cleaning Checker Relationship Specialty Start Date End Date Arjun Espino MD [address] [place] [address] PCP - General 12/19/16 documented as of this encounter
--- OUTSIDE RECORDS SUMMARY | 2018-08-18 23:05 | XMS_ITS | Encounter Summary ---
Author Organization [facility] Healthcare Address [address] [place] [address] Care Team Providers Care Splash Line Operator Name Role Phone Arjun Espino MD Primary Care Provider + [phone] Reason for Visit * Diagnostic Imaging (Routine) - Closed Specialty Diagnoses / Procedures Referred By Contac t Referred To Contact Procedures Breast Imaging Screening Outside Reference Malina Mejia NP Phone: tel: fax: Referral ID Status Reason Start Date Expiration Date Visits Re quested Visits Authorized [id number] Closed 04/05/2022 05/05/2023 1 1 Encounter Details Date Type Department Care Team (Late st Contact Info) Description 08/19/2018 12:05 AM CDT Hospital Encounter [facility] [address] [place] [phone] Social History Tobacco Use Types Packs/Day [...] Legal Sex Female 2:09 PM RETAIL SALES MANAGER Gender Identity Not on file Sexual Orientation Not on file documented as of this encounter Plan of Treatment Not on file documented as of this encounter Procedures Procedure Name Priority Date/Time Associated Diagnosis Comments BREAST IMAGING MG SCREENING OUTSIDE REFERENCE Routine 08/19/2018 12:05 AM CDT documented in this encounter Results * Breast Imaging Screening Outside Reference (08/19/2018 12:05 AM CDT) Impressions [facility] - 04/05/2022 10:56 AM RETAIL SALES MANAGER These images are for Reference purposes only and have not been reviewed by [facility] Radiology. There will be no report generated by a [facility] Radiologist. Narrative [facility] - 04/05/2022 10:56 AM RETAIL SALES MANAGER EXAMINATION: Images For Reference Purposes Only us Malina Mejia NP IMG MAMMO PROCEDURES Final Result [facility] documented in this encounter Visit Diagnoses Not on filedocumented in this encounter Care Teams Splash Line Operator Relationship Specialty Start Date End Date Arjun Espino MD [address] [place] [address] PCP - General 12/19/16 documented as of this encounter
--- OUTSIDE RECORDS SUMMARY | 2019-01-26 23:00 | XMS_ITS | Encounter Summary ---
Author Organization [facility] Healthcare Address [address] [place] [address] Care Team Providers Care Lot Attendant Name Role Phone Arjun Espino MD Primary Care Provider + [phone] Reason for Visit * Diagnostic Imaging (Routine) - Closed Specialty Diagnoses / Procedures Referred By Contac t Referred To Contact Procedures Breast Imaging Screening Outside Reference Malina Mejia NP Phone: tel: fax: Referral ID Status Reason Start Date Expiration Date Visits Re quested Visits Authorized [id number] Closed 04/05/2022 05/05/2023 1 1 Encounter Details Date Type Department Care Team (Late st Contact Info) Description 01/27/2019 Hospital Encounter [facility] [address] [place] [phone] Social History Tobacco Use Types Packs/Day [...] on file Legal Sex Female 2:[address] ENGINEER Gender Identity Not on file Sexual Orientation Not on file documented as of this encounter Plan of Treatment Not on file documented as of this encounter Procedures Procedure Name Priority Date/Time Associated Diagnosis Comments BREAST IMAGING MG SCREENING OUTSIDE REFERENCE Routine 01/27/2019 12:00 AM CDT documented in this encounter Results * Breast Imaging Screening Outside Reference (01/27/2019 12:00 AM CDT) Impressions [facility] - 04/05/2022 10:[address] ENGINEER These images are for Reference purposes only and have not been reviewed by [facility] Radiology. There will be no report generated by a [facility] Radiologist. Narrative [facility] - 04/05/2022 10:[address] ENGINEER EXAMINATION: Images For Reference Purposes Only us Malina Mejia ACCESS REPRESENTATIVE IMG MAMMO PROCEDURES Final Result [facility] documented in this encounter Visit Diagnoses Not on filedocumented in this encounter Care Teams Lot Attendant Relationship Specialty Start Date End Date Arjun Espino MD [address] [place] [address] PCP - General 12/19/16 documented as of this encounter
--- OUTSIDE RECORDS SUMMARY | 2020-01-28 23:00 | XMS_ITS | Encounter Summary ---
Author Organization [facility] Healthcare Address [address] [place] [address] Care Team Providers Care Director Of Restaurant Name Role Phone Arjun Espino MD Primary Care Provider + [phone] Reason for Visit * Diagnostic Imaging (Routine) - Closed Specialty Diagnoses / Procedures Referred By Contac t Referred To Contact Procedures Breast Imaging Screening Outside Reference Malina Mejia NP Phone: tel: fax: Referral ID Status Reason Start Date Expiration Date Visits Re quested Visits Authorized [id number] Closed 04/05/2022 05/05/2023 1 1 Encounter Details Date Type Department Care Team (Late st Contact Info) Description 01/29/2020 Hospital Encounter [facility] [address] [place] [address] Social History Tobacco Use Types Packs/Day [...] on file Legal Sex Female 2:09 PM HEEL COVERER Gender Identity Not on file Sexual Orientation Not on file documented as of this encounter Plan of Treatment Not on file documented as of this encounter Procedures Procedure Name Priority Date/Time Associated Diagnosis Comments BREAST IMAGING MG SCREENING OUTSIDE REFERENCE Routine 01/29/2020 12:00 AM CDT documented in this encounter Results * Breast Imaging Screening Outside Reference (01/29/2020 12:00 AM CDT) Impressions [facility] - 04/05/2022 10:59 AM HEEL COVERER These images are for Reference purposes only and have not been reviewed by [facility] Radiology. There will be no report generated by a [facility] Radiologist. Narrative [facility] - 04/05/2022 10:59 AM HEEL COVERER EXAMINATION: Images For Reference Purposes Only us Malina Mejia PIPE STRAIGHTENER IMG MAMMO PROCEDURES Final Result [facility] documented in this encounter Visit Diagnoses Not on filedocumented in this encounter Care Teams Director Of Restaurant Relationship Specialty Start Date End Date Arjun Espino MD [address] [place] [address] PCP - General 12/19/16 documented as of this encounter
--- NOTE | ~2025-03-23 | MM_ITS ---
EXAMINATION: MM screening lexus BI w brett HISTORY: Screening. Bilateral lumpectomies/partial mastectomies. TECHNIQUE: Craniocaudal and mediolateral oblique 3-D tomosynthesis images were obtained and synthetic 2-D images were generated. CAD analysis was submitted and interpreted. COMPARISON: April,. 2023 and 2022. BREAST PARENCHYMAL COMPOSITION: Dense: The breasts are heterogeneously dense FINDINGS: No suspicious masses are seen. There are no suspicious calcifications. Postop changes are again seen bilaterally. No unexplained architectural distortion is seen. There are no skin or nipple abnormalities identified. There is no adenopathy seen on the images submitted. IMPRESSION: No mammographic evidence to suggest malignancy is seen. The patient may return to screening mammography as per ACR guidelines. BI-RADS 2 - Benign. Reviewed, dictated and finalized at location [facility]. [facility]
--- OUTSIDE RECORDS SUMMARY | 2025-03-23 13:50 | XMS_ITS | Data Portability ---
Author Organization [facility], [address] [facility] ([place]) Address [address] [place] [address] Care Team Providers Care Venipuncturist Name Role Phone JOSE BLACKBURN Primary Care Provider [phone] Assessment No assessment recorded. Plan of Treatment [...] instructions recorded. Reason for Referral None Reported. Results Created Date Observation Date Name Description Value Unit Range Abnormal Flag Note LastModifiedBy Organization Detail LastModifiedTime 10/05/1908/19/2018 imagi ng/di agnos tic resul t No observ ation record ed. [email or web address] Not Available 0 10/04/2024 03:55:17 10/05/1912/06/2017 imagi ng/di agnos tic resul t No observ ation record ed. [email or web address] Not Available 0 10/04/2024 03:55:18 10/05/1901/27/2019 imagi ng/di agnos tic resul t No observ ation record ed. [email or web address] Not Available 0 10/04/2024 03:55:19 10/05/1901/27/2019 imagi ng/di agnos tic resul t No observ ation record ed. [email or web address] Not Available 0 10/04/2024 03:55:20 10/05/19 25 01/29/2020 imagi ng/di agnos tic resul t No observ ation record ed. [email or web address] Not Available 0 10/04/2024 03:55:21 Result Notes None recorded. Problems Name Problem SNOMED Code Status Onset Date Resolution Date Notes Provider Name and Address Organization Details Recorded Time Pain of right knee joint 6731908474003 00 Active 2023 Doug Acuña MD [address] [place] [address], [phone], [facility] 4 19:05:45 Osteoarthri tis of right knee joint 4824494370711 00 Active 2023 Doug Acuña MD [address] [place] [address], [phone], [facility] 4 11:07:58 Problem Notes None recorded. Procedures Surgical History Date Name Laterality Status Provider Name and Address Organization Details Recorded Time 02/11/20 25 SC Knee injection completed Doug Acuña MD [address] [place] [address], [phone], [facility] 02/04/2025 15:03:51 02/12/20 24 SC Procedure completed Marcelina [facility] 02/12/2024 17:58:41 Appendectomy completed Not Available Health Note 02/05/2024 11:16:03 Colonoscopy with biopsy completed Not Available Health Note 02/05/2024 11:16:03 Partial hysterectomy completed Not Available Health Note 02/05/2024 11:16:03 Imaging Results None recorded. Procedure Notes None recorded. Medical Equipment None Reported. Allergies No known drug allergies Medications Name Sig Start Date Stop Date Status Note LastModified by Organization Details LastModified Time exemestane 25 mg tablet TAKE 1 TABLET BY MOUTH EVERY DAY active Not Available Not Available No t Available Vitals Date Recorded Body height Body mass index (BMI) Body weight Heart rate Oxygen saturation Systolic And Diastolic Provider Name and Address Organization Details Last Updated DateTime 162.56 cm 24.4 kg/m2 54244.1 2 g 78 /min 98 % 160/94 mm[Hg] Zayda Damico [facility] 5 11:14:15 Social History Question Answer Notes LastModified by [employer] Details LastModified Time Tobacco Smoking Status Never Smoker Not Available Health Note 02/05/2024 11:16:03 Do You Have An Advance Directive? Yes [email or web address] Information not available 02/05/2024 What Is Your Level Of Caffeine Consumption? Moderate [email or web address] Information not available 02/05/2024 What Is Your Code Status? DNR [email or web address] Information not available 02/05/2024 How Many Times Per Week Do You Exercise? 1-2 Times Per Week [email or web address] Information not available 02/05/2024 What Was The Date Of Your Most Recent Tobacco Screening? 02/12/2024 [email or web address] Information not available 02/05/2024 What Is Your Relationship Status? [email or web address] Information not available 02/05/2024 Sex: Unknown Functional Status Question Answer Note LastModified by [employer] Details LastModified Time How many times per week do you consume alcohol? Less than 1 time per week [email or web address] Information not available 02/05/2024 Do you use any illicit or recreational drugs? No [email or web address] Information not available 02/05/2024 What is your level of alcohol consumption? Occasional [email or web address] Information not available 02/05/2024 Are you currently employed? No [email or web address] Information not available 02/05/2024 What is your occupation? Retired [email or web address] Information not available 02/05/2024 What is your exercise level? Occasional [email or web address] [...] Diagnosis SNOMED-CT Code Diagnosis ICD10 Code Diagnosis IMO Codes Diagnosis Note [id number] MD DANIA [facility] [place] [address] 02/12/2024 10:39:46 02/12/2024 11:12:09 Pain of right knee joint 2099780136 78315 M25.561 [id number] Osteoarthr itis of right knee joint 7853785330 12996 M17.11 [id number] MD [facility] [place] [address] 02/10/2025 10:50:01 02/10/2025 11:18:19 Osteoarthritis of right knee joint 2522649251 20701 M17.11 [id number] Health Concerns Section Related Observation LastModified by Organization Detai ls LastModified Time None Recorded Concern Status LastModified by Organization Details LastModified Time None Recorded Advance Directives Directive Y: Payers Insurance Date Sequence Insurance Name Policy Number Policy Payton Covered Member ID Payton Member ID Guarantor Name 03/10/2025 1 [place]ARE[place] (MEDICARE[place] Meghna Alfaroy [id number] Meghna Cai 03/10/2025 2 [facility] (MEDICARE SUPPLEMENT) Meghna Trell [id number] Meghna Cai Notes Date Note Type Note Provider Name and Address Organization Details Recorded Time 4 text/html Meghna Villalpando a 78 year oldfemalepresenting for care. Doug Acuña MD [address] [place] [address], [phone], [facility] 02/13/2024 08:55:37 OBGyn Episode No OBEpisode recorded.
--- OUTSIDE RECORDS SUMMARY | 2025-03-23 13:50 | XMS_ITS | Clinical Summary ---
Author Organization [facility] Address Formerly [facility], later [facility] [place] [address] Care Team Providers Care Robotic Technician Name Role Phone Arjun Espino MD Primary Care Provider [phone] Allergies No known active allergies Medications Memantine HCl 10 MG/5ML Solution 07/31/2022 Act ofelia Cyanocobalamin 100 MCG Tab Take 100 mcg by mouth daily. 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, unspecified estrogen receptor status (CMS/HCC HHS/HCC) [C50.011]) 01/07/2025 Orders Only [facility] [place] [address] Harman Morrison MD 01/07/2025 Orders Only [address] [place] [address] Harman Morrison MD 01/07/2025 Travel from Last 3 Months Social History Tobacco Use Types Packs/Day Years Used Date Smoking Tobacco: Never Smokeless Tobacco: Never Tobacco Cessation:Counseling Given: Not Answered Comments Unknown Sex and Gender Information Value Date Recorded Sex Assigned at Female 05/14/2024 3:37 PM CENTERLESS GRINDER OPERATOR Legal Sex Female 5:45 PM CENTERLESS GRINDER OPERATOR Gender Identity Not on file Sexual Orientation Not on file Last Filed Vital Signs Vital Sign Reading Time Taken Comments Blood Pressure 168/81 01/07/2025 10:54 AM CDT Pulse 75 01/07/2025 10:54 AM CDT Temperature 36.3 C (97.3 F) 01/07/2025 10:54 AM CDT Respiratory Rate 16 01/07/2025 10:5 4 AM CDT Oxygen Saturation 100% 01/07/2025 10: 54 AM CDT Inhaled Oxygen Concentration - - Weight 64.4 kg (141 lb 15.6 oz) 025 10:54 AM CDT Height 162.6 cm (5' 4) 04/06/2021 12:3 6 PM CENTERLESS GRINDER OPERATOR Body Mass Index 24.37 04/06/2021 12:36 PM CENTERLESS GRINDER OPERATOR Plan of Treatment Upcoming Encounters Date Type Department Care Team (Late st Contact Info) Description 07/08/2025 10:40 AM CDT Office Visit [place] [address] [place] [address] Harman Morrison MD [address] [place] [address] Health Maintenance Due Date Last Done Comments Annual Medicare Wellness Visit 2008 Dexa Scan (General) 2008 DTaP, Tdap and Td Vaccines (1 - Tdap) 02/04/2009 02/03/2009 Pneumococcal Vaccine: 50+ Years (2 of 2 - PCV) 01/10/2018 01/10/2017, 02/03/2009 RSV Immunization or 60+ Years (1 - 1-dose 75+ series) 2018 Zoster Vaccines (2 of 2) 09/06/2020 07/12/2020 COVID-19 Vaccine ( - 2024- season) 2024 03/03/2021, 05/28/2020, 05/07/2020 Influenza Adult (#1) 2024 01/23/2022, 01/21/2020, 01/02/2019, Additional history exists Hepatitis A Vaccines Aged Out No long er eligible based on patient's age to complete this topic Meningococcal B Vaccine Aged Out No l onger eligible based on patient's age to complete this topic Meningococcal Vaccine Aged Out No wolfgang jamir eligible based on patient's age to complete this topic RSV Immunizations Under 20 Months Aged Out No longer eligible based on patient's age to complete this topic Insurance [facility] MEDICARE Care Teams Robotic Technician Relationship Specialty Start Date End Date Arjun Espino MD [address] [place] [address] PCP - General INTERNAL MEDICINE 09/22/20
--- OUTSIDE RECORDS SUMMARY | 2025-03-23 13:50 | XMS_ITS | Clinical Summary ---
Author Organization [facility] Address [address] [place] [address] Care Team Providers Care Glass Inspector Name Role Phone Arjun Espino MD Primary Care Provider [phone] Source Comments [facility],non-owned Affiliates and Associated Physician Practices is amultiple site organization consisting of ambulatory clinics and hospital sitesin [place], [place], [place] and [place]. This disclosure is being madepursuant to the Care Everywhere program and may not contain all information available regarding this patient. Last updated 17.[facility] Social History Tobacco Use Types Packs/Day Years Used Date Smoking Tobacco: Never Assessed Comments Unknown Sex and Gender Information Value Date Recorded Sex Assigned at Not on file Legal Sex Female 9:29 AM CDT Gender Identity Not on file Sexual Orientation Not on file Plan of Treatment Health Maintenance Due Date Last Done Comments BONE DENSITY TESTING 1945 MEDICARE AWV 12 MONTHS 1945 DTAP/TDAP/TD VACCINES (1 - Tdap) 1962 PNEUMOCOCCAL VACCINE 50+ (1 of 1 - PCV) 1993 ZOSTER VACCINE (1 of 2) 1993 Respiratory Syncytial Virus (RSV) Vaccine Pt: or over 60 yrs (1 - 1-dose 75+ series) 2018 DEPRESSION SCREENING 04/02/2024 COVID-19 VACCINE (1 - 2024-2 6 season) 2024 INFLUENZA VACCINE (#1) 2024 HEPATITIS B VACCINE Aged Out No longe r eligible based on patient's age to complete this topic HIB VACCINE Aged Out No longer eligi ble based on patient's age to complete this topic HPV VACCINE Aged Out No longer eligi ble based on patient's age to complete this topic MENINGOCOCCAL (Group B) VACC INE SHARED DECISION-MAKING Aged Out No longer eligibl e based on patient's age to complete this topic MENINGOCOCCAL GROUPS A/C/Y/W VACCINE Aged Out No longer eligible b ased on patient's age to complete this topic Insurance MEDICARE SUPPLEMENT PAYOR GENERIC Care Teams Glass Inspector Relationship Specialty Start Date End Date Espino, Rajneesh S, MD [address] [place] [address] PCP - General 10/21/20
--- OUTSIDE RECORDS SUMMARY | 2025-03-23 13:50 | XMS_ITS | Encounter Summary ---
Author Organization [facility] Address [address] [place] [address] Phone Care Team Providers Care Records Management Clerk Name Role Phone Arjun Espino MD Primary Care Provider [phone] Encounter Details Date Type Department Care Team (Late st Contact Info) Description 07/18/2022 Orders Only [facility] Surgery [address] [place] [address] [place] [phone] Aft, Jocy Evans MD PhD [address] [place] [address] Social History Tobacco Use Types Packs/Day Years [...] on file Legal Sex Female 2:09 PM 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
--- OUTSIDE RECORDS SUMMARY | 2025-03-23 13:50 | XMS_ITS | Encounter Summary ---
Author Organization [facility] Address [facility] [place] [address] Care Team Providers Care Fisher Crab Name Role Phone Arjun Espino MD Primary Care Provider [phone] Encounter Details Date Type Department Care Team (Late st Contact Info) Description 06/28/2023 MyChart Message Enc [address] [place] [place] [address] Harman Morrison MD [address] [place], [place] [phone] Osteoporosis Social History Tobacco Use Types Packs/Day Years Used Date Smoking Tobacco: Never Smokeless Tobacco: Never Comments Unknown Sex and Gender Information Value Date Recorded Sex Assigned at Female 05/14/2024 3:37 PM FUSION JUNCTURE GRINDER Legal Sex Female 5:45 PM FUSION JUNCTURE GRINDER Gender Identity Not on file Sexual Orientation Not on file documented as of this encounter Plan of Treatment Upcoming Encounters Date Type Department Care Team (Late st Contact Info) Description 07/08/2025 10:40 AM CDT Office Visit [place] [address] [place] [address] Harman Morrison MD [address] [place], [place] [phone] documented as of this encounter Visit Diagnoses Not on filedocumented in this encounter Care Teams Fisher Crab Relationship Specialty Start Date End Date Arjun Espino MD [address] [place] [address] PCP - General INTERNAL MEDICINE 09/22/20 documented as of this encounter
--- OUTSIDE RECORDS SUMMARY | 2025-03-23 13:50 | XMS_ITS ---
Author Organization Unknown Address [address] [place] [phone] Phone Care Team Providers Care Grader Operator Name Role Phone YAN STEVE Mukherjee Attending [...] em Smoking History Never smoker (Never Smoked) [id number] SNOMED CT Sex Female Hospital Discharge Instructions Should you have any questions prior to discharge, please contact a member of your healthcare team. If you have left the hospital and have any questions, please contact your primary care physician. Reason For Referral No Data Found Procedures Procedure Name Date Status Code Code Syste m Arthrocentesis, aspiration a nd/or injection, major joint or bursa; without 02/10/2025 completed CP T Implants Implanted GERI Status Assigning Authority Procedure Date Lot Number Serial Number Manufacturing Date Expiration Date Distinct ID Code Brand Name Model Number ACRYSOF IQ IOL UV WITH BLUE LIGHT FILTER- RIGHT Active XCAPSL CTRC RMVL INSJ IO LENS PROSTH W/O ECP 02/05 [id number] 088 07/31/2023 ACRYSO F IQ IOL SN60WF POWER: 19.0 D Allergies and Adverse Reactions Allergy Substance Reaction Severity Start Date Concern Status Co de Code System NKDA - NO KNOWN DRUG ALLERGIES Active Plan of Treatment Cataract Extraction w/ IOL R 02/05/2019 Encounters Encounter Diagnosis Start Date Code Code Sys tem Unilateral primary osteoarthritis, right knee 02/11/20 25 SNOMED-CT Personal Care Team Section
--- OUTSIDE RECORDS SUMMARY | 2025-03-23 13:50 | XMS_ITS | Encounter Summary ---
Author Organization [facility] Address [address] [place] [address] Care Team Providers Care Account Service Representative Name Role Phone Arjun Espino MD Primary Care Provider [phone] Encounter Details Date Type Department Care Team (Late st Contact Info) Description 07/23/2024 Lab Requisition [facility] - DermPath Lab [address] [facility] [place] [phone] Molly Grande MD [address] [facility] [address] [place] [address] Social History Tobacco Use Types Packs/Day Years [...] Procedure Name Priority Date/Time Associated Diagnosis Comments DERMATOPATHOLOGY Routine 07/23/2024 10:5 7 AM CDT documented in this encounter Results * DERMATOPATHOLOGY (07/23/2024 10:57 AM CDT) Case Report Dermatopathology Report Case: [id number] Authorizing Provider: Molly Grande MD Collected: 07/23/2024 10:57 AM Ordering Location: [facility] - Received: 07/24/2024 07:24 AM DermPath Lab Pathologist: Donna Bailey MD Specimen: Skin, right hand 5:29 PM CDT DERMATOPATHOLOGY LABORATORY Final Diagnosis Specimen A. SKIN, right hand: SOLAR LENTIGO (L81.4) (see microscopic description) 5:29 PM CDT DERMATOPATHOLOGY LABORATORY at 1729 CDT Clinical History Nevus R/O MM; Irregular color 5:29 PM CDT DERMATOPATHOLOGY LABORATORY Gross Description Specimen A: Received is one formalin filled container labeled with the patient's name and designated right hand. The specimen consists of a shave biopsy measuring 6x4x1 mm. Jar 0. 5:29 PM CDT DERMATOPATHOLOGY LABORATORY Microscopic Description Specimen A. SKIN, right hand: There is orthokeratosis. There is a slight increase in epidermal thickness with lentiginous buds of hyperpigmented keratinocytes. The number of melanocytes, highlighted by MART-1/Melan-A immunohistochemical staining, is only mildly increased. In the dermis, there is basophilic degeneration of elastic fibers. 5:29 PM CDT DERMATOPATHOLOGY LABORATORY Disclaimer An external and internal positive and negative controls are appropriate for the histochemical, immunohistochemical and immunofluorescence stain(s) in this case (if any), except where stated explicitly. The performance characteristics of the stain(s) cited in this report were developed and its performance characteristic determined by the Dermatopathology Laboratory at [facility], directed by Dr. Lor Echols. These tests need not be, and therefore are not, approved by the [place] Food and Drug Administration. The tests are used for clinical purposes. Billing Codes Specimen Charges Stain Charges 78385 1 73656 1 5:29 PM CDT DERMATOPATHOLOGY LABORATORY Embedded Images 5:29 PM CDT DERMATOPATHOLOGY LABORATORY Pathology/Cytolo gy TISSUE SPECIMEN FROM SKIN / Unknown 07/23/2024 10:57 AM CDT 07/24/2024 7:24 AM CDT Molly Grande MD LAB - PATHOLOGY/CYTOLOGY OR DERABLES Final Result DERMATOPATHOLOGY LABORATORY [facility] - Department of Dermatology [address], [address] [phone] documented in this encounter Visit Diagnoses Not on filedocumented in this encounter Care Teams Account Service Representative Relationship Specialty Start Date End Date Arjun Espino MD [address] [place] [phone] PCP - General 10/21/20 documented as of this encounter
--- OUTSIDE RECORDS SUMMARY | 2025-03-23 13:50 | XMS_ITS | Clinical Summary ---
Author Organization [facility] Address [address] [place] [address] Care Team Providers Care Careers Adviser Name Role Phone Arjun Espino MD Primary Care Provider [phone] Allergies No known active allergies Medications calcium [...] (06/13/2022): Added automatically from request for surgery [id number] Abnormal mammogram 04/24/2022 Dysphagia 12/07/2020 Overview (12/07/2020): Added automatically from request for surgery [id number] Hx of colonic polyps 12/07/2020 Overview (12/07/2020): Added automatically from request for surgery [id number] History of breast cancer 09/11/2017 Osteoporosis 12/20/2012 [...] 04/02/1978 - 04/01/1979 FIBROIDS: Hysterectomy COLONOSCOPY 01/15/2015 [facility] BREAST LUMPECTOMY 02/06/2017 Left BREAST BIOPSY 04/24/2022 [...] to brain, spine, ribs, etc. 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 Gender Identity Not on file Sexual Orientation [...] 3:50 PM CDT Height 162.6 cm (5' 4) 06/14/2022 3:50 PM CDT Body Mass Index 24.89 06/14/2022 3:50 PM CDT Plan of Treatment Health Maintenance Due Date Last Done Comments Depression Screening 1945 Osteoporosis Screening-Bone Density Scan 1945 Hepatitis B Screening 1961 Well Visit 65+ 2008 DTaP/Tdap/Td Vaccine (1 - Tdap) 02/04/2009 9 Zoster Vaccine (2 of 2) 09/06/2020 07/12/2020 Fall Risk Assessment 07/05/2023 07/04/2022 Covid-19 Vaccine (4 - 2024-2 6 season) 2024 03/03/2021, 05/28/2020, 05/07/2020 Influenza Vaccine (#1) 2024 , 01/23/2022, 01/19/2021, Additional history exists Pneumococcal vaccine 65+ Completed 01/10/2017, 07/2008 Medical Devices Implanted Type Area Coat Checker Device Identifier Shelf Expiration Date Model / Serial / Lot Bard Peripheral V[employer] Ghiatas 20ga 20cm 7cm Beaded Needle Breast Wire Localization [id number] - [id number] Implanted:Qty: 1 on 07/04/2022 at [facility] Right: Breast [employer] [id number] / / Insurance MEDICARE [facility] Address: [address] [address] COMMERCIAL GENERIC MEDICARE [facility] COMMERCIAL GENERIC MEDICARE COMMERCIAL GENERIC Advance Directives For more information, please contact: [phone] Documents on File Type Date Recorded Patient Button Cutter Expl anation ADVANCE DIRECTIVE 10/05/2022 4:06 PM DNR ADVANCE DIRECTIVE 07/04/2022 8:18 AM Power of Bench Assembler [employer] * Full Code (Latest Code Status on File) Date Activated Date Inactivated Comments 02/03/2021 11:42 AM 02/03/2021 5:52 PM Care Teams Careers Adviser Relationship Specialty Start Date End Date Arjun Espino MD [address] [place] [address] PCP - General 12/19/16
--- OUTSIDE RECORDS SUMMARY | 2025-03-23 13:50 | XMS_ITS ---
Author Organization Unknown Address [address] [place] [phone] Phone Care Team Providers Care Self Sealing Fuel Tank Repairer Name Role Phone YAN STEVE Mukherjee Attending [...] em Smoking History Never smoker (Never Smoked) [id number] SNOMED CT Sex Female Hospital Discharge Instructions [...] INSJ IO LENS PROSTH W/O ECP 02/05 [id number] 2 088 07/31/2023 ACRYSO F IQ IOL SN60WF POWER: 19.0 D Allergies and Adverse Reactions Allergy Substance Reaction Severity Start Date Concern Status Co de Code System NKDA - NO KNOWN DRUG ALLERGIES Active Plan of Treatment Cataract Extraction w/ IOL R 02/05/2019 Encounters Encounter Diagnosis Start Date Code Code Sys tem Unilateral primary osteoarthritis, right knee 02/12/20 SNOMED-CT Personal Care Team Section
--- OUTSIDE RECORDS SUMMARY | 2025-03-23 13:50 | XMS_ITS | Continuity of Care Document ---
Author Organization [facility], [facility] Address [address] [place] [address] Care Team Providers Care Shared Services Manager Name Role Phone JOSE BLACKBURN Primary Care Provider [phone] Assessment No assessment recorded. Plan of Treatment [...] Recorded Time Pain of right knee joint [id number] 00 Active 2023 Doug Acuña MD [address] [place] [address], [phone], [facility] 4 19:05:45 Osteoarthri tis of right knee joint 7923088297059 00 Active 2023 Doug Acuña MD [address] [place] [address], [phone], [facility] 4 11:07:58 Problem Notes None recorded. Procedures Surgical History Date Name Laterality Status Provider Name and Address Organization Details Recorded Time 02/11/20 25 SC Knee injection completed Doug Acuña MD [address] [place] [address], [phone], [facility] 02/04/2025 15:03:51 02/12/20 24 SC Procedure completed Marceilna Channels [facility] 02/12/2024 17:58:41 Appendectomy completed Not Available Health [...] Last Updated DateTime 162.56 cm 24.4 kg/m2 10818.1 2 g 78 /min 98 % 160/94 mm[Hg] Zayda Damico [facility] 5 11:14:15 Social History Question Answer Notes LastModified by Looxii Details LastModified Time Tobacco Smoking Status Never [...] Functional Status Question Answer Note LastModified by Looxii Details LastModified Time How many times per [...] available 2023 11:16:02 Medical History Condition Response Anxiety Disorder N Diabetes N Bleeding Disorder N Attention-deficit Hyperactivity Disorder N High Blood Pressure Y Arthritis N Hyperlipidemia N Cancer Y Thyroid Problems N Stroke N Asthma N Depression N COPD N Seizures N Anemia N Heart Disease N Fibromyalgia N Osteoporosis N Kidney Disease N Gynecological HistoryNo gynecological history recorded. Obstetrics History GPAL:G 0 P 0 0 0 0 Past Encounters Encounter ID Performer Location Encounter Start Date Encounter Closed Date Diagnosis/Indication Diagnosis SNOMED-CT Code Diagnosis ICD10 Code Diagnosis IMO Codes Diagnosis Note [id number] Doug Acuña MD [facility] [address] [place] [address] 02/10/2025 10:50:01 02/10/2025 11:18:19 Osteoarthritis of right knee joint [id number] 00420 M17.11 [id number] Health Concerns Section Related Observation LastModified by Organization Detai ls LastModified Time None Recorded Concern Status LastModified by Organization Details LastModified Time None Recorded Payers Encounter Date Sequence Insurance Name Policy Number Policy Payton Covered Member ID Payton Member ID Guarantor Name 02/10/2025 1 [employer]ARE-[place] (MEDICARE) Meghna Cai [id number] Meghnaduran Alfaroy 02/10/2025 2 [facility] (MEDICARE SUPPLEMENT) Meghnaduran Alfaroy [id number] Meghna Cai OBGyn Episode No OBEpisode recorded.
--- OUTSIDE RECORDS SUMMARY | 2025-03-23 13:51 | XMS_ITS ---
Author Organization Unknown Address [address] [place] [phone] Phone Care Team Providers Care Manager Of Learning Name Role Phone YAN STEVE Mukherjee Attending [...] em Smoking History Never smoker (Never Smoked) [id number] SNOMED CT Sex Female Hospital Discharge Instructions [...] INSJ IO LENS PROSTH W/O ECP 02/05 [id number] 2 088 07/31/2023 ACRYSO F IQ IOL [...]
== END 2025-03-23 12:14 | disposition home or self-care (01) ==
PROVIDERS: PCP Internal Medicine; Visit Provider Internal Medicine Hematology & Oncology
DX: Z12.31 Encounter for screening mammogram for malignant neoplasm of breast (principal)
CPT/HCPCS: 77063; 77067